=== PATIENT | female | born 1945 | race Caucasian/White ===

== ENCOUNTER → 2021-07-25 14:38 | Outpatient (BNVA) | payer MEDICARE, SELFPAY | PROVIDERS: PCP Internal Medicine; Visit Provider Hospitalist | DX: J45.40 Moderate persistent asthma, uncomplicated (principal); J30.9 Allergic rhinitis, unspecified; R01.1 Cardiac murmur, unspecified | CPT/HCPCS: 99202 ==

== ENCOUNTER 2021-10-24 13:45 | Outpatient (REF) | payer MEDICARE, SELFPAY ==
--- NOTE | 2021-10-24 17:26 | PFT_ITS ---
FLOWS: FEV1 of 77% of predicted at 1.54 L. FVC 76% of predicted at 2.04 L. FEV1 to FVC ratio of 0.75. No bronchodilator response. LUNG VOLUMES: Total lung capacity 93% of predicted at 4.71 L. Residual volume 116% of predicted at 2.74 L. Slow vital capacity 73% of predicted at 1.98 L. Expiratory reserve volume 52% of predicted at 0.29 L. Diffusion capacity is mildly decreased, diffusion capacity corrects to normal after adjustment for alveolar ventilation. IMPRESSION: No obstructive or restrictive ventilatory defect. No bronchodilator response. Raul Zheng MD AP/MODL / [id number]
== END 2021-10-24 13:46 | disposition home or self-care (01) ==
LOC: HO.RESP 13:45
PROVIDERS: PCP Student in an Organized Health Care Education/Training Program; Visit Provider Hospitalist
DX: J45.40 Moderate persistent asthma, uncomplicated (principal)
CPT/HCPCS: 94060; 94727; 94729; 99212

== ENCOUNTER 2022-01-17 15:40 | Outpatient (REF) | payer MEDICARE, SELFPAY ==
[2022-01-17 16:02] LABS: MANUAL DIFF FLAG NO
[2022-01-17 16:49] LABS: Basophils Absolute Auto 0.1 X10*3/uL (0.0-0.2); Basophils Percent Auto 1.2 % (0-2); Eosinophils Absolute Auto 0.3 X10*3/uL (0.0-0.4); Hematocrit 41.2 % (37.0-47.0); Hemoglobin 13.5 g/dl (12.0-16.0); Imm Gran Abs Auto 0.02 X10*3/uL (0.00-0.03); Imm Gran Pct Auto 0.2 % (0.0-0.4); Lymphocytes Absolute Auto 1.4 X10*3/uL (1.2-4.9); Mean Corpuscular HGB Conc 32.8 g/dl (31.0-35.0); Mean Corpuscular Hemoglobin 30.1 pg (27.0-33.0); Mean Corpuscular Volume 91.8 fL (80.0-98.0); Mean Platelet Volume 9.9 fL (9.4-12.3); Monocytes Absolute Auto 0.5 X10*3/uL (0.1-1.2); Neutrophils Absolute Auto 6.2 x10*3/uL (2.0-8.3); Neutrophils Percent Auto 73.6 % (45-73); Platelet Count 296 X10*3/uL (160-400); Red Blood Count 4.49 X10*6/uL (4.20-5.50); Red Cell Distribution Width 13.4 % (11.0-16.0); White Blood Count 8.4 X10*3/uL (4.8-10.8)
[2022-01-17 17:13] LABS: C Reactive Protein 1.44 mg/dL (< or = 0.50)
[2022-01-17 17:31] LABS: Erythrocyte Sedimentation Rate 13 MM/HR (0-20)
[2022-01-22 14:02] LABS: Vitamin D 25-OH, D2 <4 ng/mL; Vitamin D 25-OH, D3 68 ng/mL; Vitamin D 25-OH, Total 68 ng/mL (30-100)
== END 2022-01-17 15:41 | disposition home or self-care (01) ==
LOC: HO.LAB 15:40
PROVIDERS: PCP Student in an Organized Health Care Education/Training Program; Visit Provider Internal Medicine Rheumatology
DX: M35.3 Polymyalgia rheumatica (principal); M81.0 Age-related osteoporosis without current pathological fracture
CPT/HCPCS: 36415; 82306; 85025; 85652; 86140

== ENCOUNTER 2022-01-22 12:05 | Outpatient (REF) | payer MEDICARE, SELFPAY ==
[2022-01-22 14:16] LABS: Alanine Aminotransferase 12 U/L (0-31); Albumin Level 3.9 g/dL (3.5-5.0); Alkaline Phosphatase 64 U/L (39-117); Anion Gap 14 (12-20); Aspartate Amino Transferase 16 U/L (5-31); Bilirubin Total 0.5 mg/dL (0.0-1.0); Blood Urea Nitrogen 13 mg/dL (9-16); Carbon Dioxide 28 mmol/L (22-29); Chloride 102 mmol/L (96-108); Estimated Glomerular Filt Rate > 60; Glucose Random 83 mg/dL (60-115); Potassium 4.5 mmol/L (3.3-5.1); Sodium 139 mmol/L (135-145); Total Protein 7.2 g/dL (6.5-8.0)
[2022-01-23 04:32] LABS: HBS Num1 2.73 mIU/mL (0-7.99); HBc Num1 0.14 S/CO (0.00-0.79); HBsAGNum1 0.18 S/CO (0.00-0.99); Hepatitis B Core Antibody Nonreactive (Nonreactive); Hepatitis B Surface Antigen Negative (Negative); ~HepC Num1 0.07 S/CO (0.00-0.79); ~Hepatitis B Surface Antibody NONREACTIVE (Nonreactive); ~Hepatitis C Antibody Nonreactive (Nonreactive)
[2022-01-24 03:59] LABS: Hepatitis A Antibody IgM 0.25 Index (0-0.79); ~Hepatitis A Antibody IgM Nonreactive (Nonreactive)
[2022-01-25 02:26] LABS: TS Negative Control Passed; TS Panel A 0; TS Panel B 0; TS Positive Control Passed; TSpotTB Negative (Negative)
== END 2022-01-22 12:06 | disposition home or self-care (01) ==
LOC: HO.10HDL 12:05
PROVIDERS: Visit Provider Internal Medicine Rheumatology
DX: M06.00 Rheumatoid arthritis without rheumatoid factor, unspecified site (principal); M35.3 Polymyalgia rheumatica; M81.0 Age-related osteoporosis without current pathological fracture; M19.041 Primary osteoarthritis, right hand; M19.042 Primary osteoarthritis, left hand; Z79.899 Other long term (current) drug therapy
CPT/HCPCS: 36415; 80053; 86481; 86704; 86706; 86709; 86803; 87340; 99212

== ENCOUNTER 2022-03-05 13:50 | Outpatient (REF) | payer MEDICARE, SELFPAY ==
[2022-03-05 14:15] LABS: MANUAL DIFF FLAG NO
[2022-03-05 15:15] LABS: Basophils Absolute Auto 0.1 X10*3/uL (0.0-0.2); Basophils Percent Auto 1.1 % (0-2); Eosinophils Absolute Auto 0.3 X10*3/uL (0.0-0.4); Eosinophils Percent Auto 3.8 % (0-4); Hematocrit 40.2 % (37.0-47.0); Hemoglobin 13.2 g/dl (12.0-16.0); Imm Gran Abs Auto 0.02 X10*3/uL (0.00-0.03); Imm Gran Pct Auto 0.3 % (0.0-0.4); Lymphocytes Absolute Auto 1.1 X10*3/uL (1.2-4.9); Lymphocytes Percent Auto 14.4 % (20-40); Mean Corpuscular HGB Conc 32.8 g/dl (31.0-35.0); Mean Corpuscular Hemoglobin 30.6 pg (27.0-33.0); Mean Corpuscular Volume 93.1 fL (80.0-98.0); Monocytes Absolute Auto 0.6 X10*3/uL (0.1-1.2); Monocytes Percent Auto 7.3 % (2-11); Neutrophils Absolute Auto 5.7 x10*3/uL (2.0-8.3); Neutrophils Percent Auto 73.1 % (45-73); Platelet Count 270 X10*3/uL (160-400); Red Blood Count 4.32 X10*6/uL (4.20-5.50); Red Cell Distribution Width 14.6 % (11.0-16.0); White Blood Count 7.8 X10*3/uL (4.8-10.8)
[2022-03-05 15:41] LABS: Alanine Aminotransferase 9 U/L (0-31); Aspartate Amino Transferase 15 U/L (5-31); C Reactive Protein 0.76 mg/dL (< or = 0.50); Estimated Glomerular Filt Rate > 60
[2022-03-05 16:01] LABS: Erythrocyte Sedimentation Rate 11 MM/HR (0-20)
== END 2022-03-05 13:51 | disposition home or self-care (01) ==
LOC: HO.LAB 13:50
PROVIDERS: PCP Student in an Organized Health Care Education/Training Program; Visit Provider Internal Medicine Rheumatology
DX: M06.00 Rheumatoid arthritis without rheumatoid factor, unspecified site (principal); M81.0 Age-related osteoporosis without current pathological fracture; M19.041 Primary osteoarthritis, right hand; M19.042 Primary osteoarthritis, left hand; Z79.899 Other long term (current) drug therapy
CPT/HCPCS: 36415; 82565; 84450; 84460; 85025; 85652; 86140; 99212

== ENCOUNTER → 2022-05-17 09:50 | Outpatient (BNVA) | payer MEDICARE, SELFPAY | PROVIDERS: PCP Student in an Organized Health Care Education/Training Program; Visit Provider Internal Medicine Rheumatology | DX: M19.042 Primary osteoarthritis, left hand (principal); M19.041 Primary osteoarthritis, right hand; M06.00 Rheumatoid arthritis without rheumatoid factor, unspecified site; Z79.52 Long term (current) use of systemic steroids; Z79.899 Other long term (current) drug therapy | CPT/HCPCS: 99212 ==

== ENCOUNTER 2022-05-17 10:52 | Outpatient (REF) | payer MEDICARE, SELFPAY ==
[2022-05-17 13:32] LABS: MANUAL DIFF FLAG NO
[2022-05-17 14:08] LABS: Basophils Absolute Auto 0.1 X10*3/uL (0.0-0.2); Basophils Percent Auto 1.1 % (0-2); Eosinophils Absolute Auto 0.3 X10*3/uL (0.0-0.4); Eosinophils Percent Auto 3.7 % (0-4); Hematocrit 40.2 % (37.0-47.0); Hemoglobin 13.1 g/dl (12.0-16.0); Imm Gran Abs Auto 0.03 X10*3/uL (0.00-0.03); Imm Gran Pct Auto 0.4 % (0.0-0.4); Lymphocytes Absolute Auto 1.2 X10*3/uL (1.2-4.9); Lymphocytes Percent Auto 13.8 % (20-40); Mean Corpuscular HGB Conc 32.6 g/dl (31.0-35.0); Mean Corpuscular Hemoglobin 31.4 pg (27.0-33.0); Mean Corpuscular Volume 96.4 fL (80.0-98.0); Mean Platelet Volume 9.8 fL (9.4-12.3); Monocytes Absolute Auto 0.5 X10*3/uL (0.1-1.2); Monocytes Percent Auto 5.9 % (2-11); Neutrophils Absolute Auto 6.3 x10*3/uL (2.0-8.3); Neutrophils Percent Auto 75.1 % (45-73); Platelet Count 294 X10*3/uL (160-400); Red Blood Count 4.17 X10*6/uL (4.20-5.50); Red Cell Distribution Width 14.6 % (11.0-16.0); White Blood Count 8.4 X10*3/uL (4.8-10.8)
[2022-05-17 14:36] LABS: Alanine Aminotransferase 12 U/L (0-31); Aspartate Amino Transferase 17 U/L (5-31); C Reactive Protein 0.56 mg/dL (< or = 0.50); Estimated Glomerular Filt Rate > 60
[2022-05-17 14:58] LABS: Erythrocyte Sedimentation Rate 12 MM/HR (0-20)
== END 2022-05-17 10:53 | disposition home or self-care (01) ==
LOC: HO.10HDL 10:52
PROVIDERS: Visit Provider Internal Medicine Rheumatology
DX: M19.041 Primary osteoarthritis, right hand (principal); M19.042 Primary osteoarthritis, left hand; M06.00 Rheumatoid arthritis without rheumatoid factor, unspecified site; Z79.899 Other long term (current) drug therapy
CPT/HCPCS: 36415; 82565; 84450; 84460; 85025; 85652; 86140

== ENCOUNTER → 2022-05-21 14:32 | Outpatient (BNVA) | payer MEDICARE, SELFPAY | PROVIDERS: PCP Student in an Organized Health Care Education/Training Program; Visit Provider Hospitalist | DX: J45.40 Moderate persistent asthma, uncomplicated (principal); J30.9 Allergic rhinitis, unspecified; J98.4 Other disorders of lung; R01.1 Cardiac murmur, unspecified | CPT/HCPCS: 99212 ==

== ENCOUNTER 2022-09-06 12:22 | Outpatient (REF) | payer MEDICARE, SELFPAY ==
[2022-09-06 13:55] LABS: MANUAL DIFF FLAG NO
[2022-09-06 14:18] LABS: Basophils Absolute Auto 0.1 X10*3/uL (0.0-0.2); Basophils Percent Auto 1.1 % (0-2); Eosinophils Absolute Auto 0.5 X10*3/uL (0.0-0.4); Eosinophils Percent Auto 5.6 % (0-4); Hematocrit 41.5 % (37.0-47.0); Hemoglobin 13.5 g/dl (12.0-16.0); Imm Gran Abs Auto 0.01 X10*3/uL (0.00-0.03); Imm Gran Pct Auto 0.1 % (0.0-0.4); Lymphocytes Absolute Auto 1.9 X10*3/uL (1.2-4.9); Lymphocytes Percent Auto 22.8 % (20-40); Mean Corpuscular HGB Conc 32.5 g/dl (31.0-35.0); Mean Corpuscular Hemoglobin 31.1 pg (27.0-33.0); Mean Corpuscular Volume 95.6 fL (80.0-98.0); Mean Platelet Volume 10.1 fL (9.4-12.3); Monocytes Absolute Auto 0.9 X10*3/uL (0.1-1.2); Monocytes Percent Auto 11.2 % (2-11); Neutrophils Absolute Auto 4.8 x10*3/uL (2.0-8.3); Neutrophils Percent Auto 59.2 % (45-73); Platelet Count 312 X10*3/uL (160-400); Red Blood Count 4.34 X10*6/uL (4.20-5.50); Red Cell Distribution Width 14.3 % (11.0-16.0); White Blood Count 8.2 X10*3/uL (4.8-10.8)
[2022-09-06 14:35] LABS: C Reactive Protein 0.58 mg/dL (< or = 0.50)
[2022-09-06 14:57] LABS: Erythrocyte Sedimentation Rate 16 MM/HR (0-20)
== END 2022-09-06 12:23 | disposition home or self-care (01) ==
LOC: HO.WFDLDS 12:22
PROVIDERS: Visit Provider Internal Medicine Rheumatology
DX: M06.00 Rheumatoid arthritis without rheumatoid factor, unspecified site (principal); Z79.899 Other long term (current) drug therapy
CPT/HCPCS: 36415; 85025; 85652; 86140

== ENCOUNTER → 2022-09-10 13:42 | Outpatient (BNVA) | payer MEDICARE, SELFPAY | PROVIDERS: PCP Student in an Organized Health Care Education/Training Program; Visit Provider Internal Medicine Rheumatology | DX: M06.00 Rheumatoid arthritis without rheumatoid factor, unspecified site (principal); M19.041 Primary osteoarthritis, right hand; M19.042 Primary osteoarthritis, left hand; Z79.899 Other long term (current) drug therapy | CPT/HCPCS: 99212 ==

== ENCOUNTER 2022-12-24 11:51 | Outpatient (REF) | payer MEDICARE, SELFPAY ==
[2022-12-24 12:00] LABS: MANUAL DIFF FLAG NO
[2022-12-24 13:52] LABS: Basophils Absolute Auto 0.1 X10*3/uL (0.0-0.2); Basophils Percent Auto 1.2 % (0-2); Eosinophils Absolute Auto 0.5 X10*3/uL (0.0-0.4); Eosinophils Percent Auto 5.7 % (0-4); Hematocrit 41.8 % (37.0-47.0); Hemoglobin 13.7 g/dl (12.0-16.0); Imm Gran Abs Auto 0.02 X10*3/uL (0.00-0.03); Imm Gran Pct Auto 0.2 % (0.0-0.4); Lymphocytes Absolute Auto 1.7 X10*3/uL (1.2-4.9); Lymphocytes Percent Auto 19.7 % (20-40); Mean Corpuscular HGB Conc 32.8 g/dl (31.0-35.0); Mean Corpuscular Hemoglobin 31.3 pg (27.0-33.0); Mean Corpuscular Volume 95.4 fL (80.0-98.0); Mean Platelet Volume 10.2 fL (9.4-12.3); Monocytes Absolute Auto 0.9 X10*3/uL (0.1-1.2); Monocytes Percent Auto 10.2 % (2-11); Neutrophils Absolute Auto 5.3 x10*3/uL (2.0-8.3); Platelet Count 264 X10*3/uL (160-400); Red Blood Count 4.38 X10*6/uL (4.20-5.50); Red Cell Distribution Width 14.2 % (11.0-16.0); White Blood Count 8.5 X10*3/uL (4.8-10.8)
[2022-12-24 14:33] LABS: Erythrocyte Sedimentation Rate 12 MM/HR (0-20)
[2022-12-24 14:40] LABS: Alanine Aminotransferase 14 U/L (0-31); Aspartate Amino Transferase 19 U/L (5-31); Estimated Glomerular Filt Rate > 60
== END 2022-12-24 11:52 | disposition home or self-care (01) ==
LOC: HO.LAB 11:51
PROVIDERS: PCP Student in an Organized Health Care Education/Training Program; Visit Provider Internal Medicine Rheumatology
DX: M06.00 Rheumatoid arthritis without rheumatoid factor, unspecified site (principal); Z79.899 Other long term (current) drug therapy
CPT/HCPCS: 36415; 82565; 84450; 84460; 85025; 85652; 86140

== ENCOUNTER 2023-01-17 09:41 | Outpatient (AMB) | payer MEDICARE, SELFPAY ==
--- NOTE | 2023-01-17 09:44 | A.OFFVIS_ITS ---
Intake Vital Signs 01/17/23 09:53 Height 5 ft 4 in Weight 148 lb 12.992 oz BMI 25.5 BP 126/70 Blood Pressure Location Lt brachial Position Sitting Pulse 80 Pulse Source Pulse Oximeter Temp 97.2 F Temp Source Skin Pulse Oximetry (%) 97 Oxygen Delivery Method Room Air Intake Visit Reasons: RA Intake Note: Patient here for RA follow up. Sand Analyst Required: No Accompanied by: Self / Same As Patient Allergies hydroxychloroquine [From Plaquenil] Adverse Reaction (Intermediate, Verified 01/17/23 09:52) Rash Sulfa (Sulfonamide Antibiotics) Adverse Reaction (Intermediate, Verified 01/17/23 09:52) Rash HPI HPI Comments History of Present Illness Details The patient returns for evaluation of her rheumatoid arthritis. She remains on methotrexate 15 mg weekly and folic acid 1 mg daily. We had stopped her prednisone back in September. She has remained off it. She still is taking alendronate 70 mg weekly for osteoporosis. She last had a bone density study at [facility] last year. This showed some improvement in the lumbar spine region as compared to previously. We would continue the alendronate because of her continued use of prednisone. She has been experiencing some low back pain. This is usually occurring when she is more active. She does have an orthopedic evaluation for that planned in a week or 2. There has been no previous back injury or surgery on the back. Symptoms do not seem seem to radiate more distally than just the buttock area on the right. [facility] Medical History (Updated 09/09/22 @ 15:44 by Migue Infante MD) Dyspnea Chronic allergic rhinitis Murmur Asthma Family History Father Esophageal cancer Brother Alzheimer disease Social History (Updated 01/17/23 @ 09:53 by DOMINIC Raines) Household Members: Spouse Alcohol intake: former Patient Tobacco Use Status: Never used Tobacco Review of Systems Const Details: Negative for appetite change, weight change, fever, chills, malaise and fatigue Eyes Details: Negative for vision change, dry eyes,headaches and dizziness Card Details: Negative chest pain, edema and syncope Resp Details: Negative for SOB, cough and wheezing GI Details: Negative indigestion/heartburn, nausea, abdominal pain, bowel changes, diarrhea, constipation and bloody stool. Details: Negative for dysuria, hematuria, nocturia, decreased force/flow and genital discharge Endo Details: Negative for polyuria and polydypsia Chalino/Lymph Details: Negative for excessive bruising or bleeding. Physical Exam Vital Signs: Last Vital Signs Temp 97.2 F 01/17/23 09:53 Pulse 80 01/17/23 09:53 BP 126/70 01/17/23 09:53 Pulse Ox 97 01/17/23 09:53 Oxygen Delivery Method Room Air 01/17/23 09:53 BMI result Body Mass Index 25.5 APPEARANCE: Patient in no acute distress EXTREMITIES: Some nontender spider veins in the dorsum of the feet and medial malleolar regions. No edema, no calf tenderness, normal peripheral pulses. SKIN: No inflammatory or neoplastic lesions. Normal color and turgor JOINT EXAM: Cervical Spine:.? Full range of motion without pain; no tenderness. Thoracic Spine:.? Some kyphoscoliosis, more kyphosis in the thoracic spine.? No tenderness on palpation. Lumbar Spine:.? Alignment normal.? She has some kyphoscoliosis. There is mild pain with flexion beyond 45 degrees and some right paraspinal muscle tenderness. No tenderness over the vertebral spines. Chest Wall:.? No tenderness, swelling, increased warmth or erythema. Hands:? Right: Slight bony enlargement without tenderness at the base of the thumb.? There is slight swelling of the 2nd MCP joint and 2nd and 3rd PIP joints.? These joints are not tender however.? There is no flexor tendon triggering, thenar atrophy or sensory loss.? Left:? Moderate bony enlargement with slight tenderness at the base of the thumb.? There is soft tissue swelling at the 1st MCP joint with no tenderness.? There is soft tissue swelling and no tenderness at the 2nd and 3rd PIP.? There is no flexor tendon triggering, thenar atrophy or sensory loss. Wrists:.? Normal pain-free range of motion without tenderness, swelling, incr eased warmth or erythema. Elbows:. Normal pain-free range of motion without tenderness, swelling, increased warmth or erythema. Shoulders:.?? Full range of motion without pain. No tenderness, weakness, swelling, increased warmth or erythema. Hips:.? Full range of motion without pain. Hip bursa:.? No tenderness. Knees:.?? Normal pain-free range of motion with mild patellofemoral crepitus but no effusion, swelling, increased warmth or erythema.? Ankles:.? Normal pain-free range of motion without tenderness, swelling, increased warmth or erythema. Feet:.? Right:? There is slight tenderness across the MTP joints and has h ammertoe deformities of the 2nd through 4th toes.? These are minimally tender at the MTPs.? Left:? Normal pain-free range of motion without tenderness, swelling, increased warmth or erythema.? Slight hammertoe deformity at the 4th toe without any tenderness. Tender points:? No tenderness to digital palpation at the occiput, trapezius, second rib, lateral epicondyle, knees, greater trochanter and gluteal area bilaterally. Results Reviewed Results Reviewed: 12/24/22 labs: wbc 8.5, hgb 13.7, esr 12, reat 0.8, ALT and AST WNL, CRP 0.5 Assessment & Plan Assessment & Plan (1) Long-term use of immunosuppressant medication: Code(s): Z79.899 - Other usp (current) drug therapy (2) Osteoporosis: Comment: Bone density 06/09/07 T -4.2 spine, -2.2 hip, -2.4 fem neck, -3.5 spine, osteopenia hip on repeat testing 07/20 Alendronate: [id number]; restarted 2016 Code(s): M81.0 - Age-related osteoporosis without current pathological fracture (3) Osteoarthritis of hands, bilateral: Code(s): M19.041 - Primary osteoarthritis, right hand; M19.042 - Primary osteoarthritis, left hand (4) Seronegative rheumatoid arthritis: Comment: Onset in about 2017 with PMR like picture. In 2021 she developed more small joint synovitis in the hands. Rheumatoid factor negative in 2018. In 2018 treatment trial hydroxychloroquine and then sulfasalazine was aborted because of skin rashes. 01/2022: methotrexate started Code(s): M06.00 - Rheumatoid arthritis without rheumatoid factor, unspecified site Plan Rheumatoid arthritis with I think good control of synovitis with current treatment. She has some remaining discomfort in the hands with bony changes consistent with some osteoarthritis. The blood work would indicate she is tolerating the methotrexate so I think it can be continued as above. I think at this point she could stop the alendronate. She had an improvement in the bone density and is no longer on the prednisone. My plan would be to hold it for a year or 2 and repeat her bone density to assess its stability. The back pain is likely due to the osteoarthritis rather than anything to do with the rheumatoid arthritis. Acetaminophen is recommended in place of the ibuprofen at present since it is less likely to cause renal or GI side effects. Follow-up in 3 months is recommended. 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 This would be in [place]. She will look into availability at the [facility]. She may request transfer of her records at some point later this fall or early next year. Coding Level of Care Code Est Pt Level 4 (48661) Diagnoses Long-term use of immunosuppressant medication Z79.899 Osteoporosis M81.0 Osteoarthritis of hands, bilateral M19.041; M19.042 Seronegative rheumatoid arthritis M06.00
[2023-01-17 09:53] VITALS: BP 126/70; PULSE 80; TEMP 36.2; O2SAT 97; BMI 25.5
== END 2023-01-17 10:26 | disposition home or self-care (01) ==
PROVIDERS: PCP Student in an Organized Health Care Education/Training Program; Visit Provider Internal Medicine Rheumatology
DX: Z79.899 Other long term (current) drug therapy (principal); M81.0 Age-related osteoporosis without current pathological fracture; M19.041 Primary osteoarthritis, right hand; M19.042 Primary osteoarthritis, left hand; M06.00 Rheumatoid arthritis without rheumatoid factor, unspecified site
CPT/HCPCS: 99214

== ENCOUNTER → 2023-01-17 09:41 | Outpatient (BNVA) | payer MEDICARE, SELFPAY | PROVIDERS: PCP Student in an Organized Health Care Education/Training Program; Visit Provider Internal Medicine Rheumatology | DX: M06.00 Rheumatoid arthritis without rheumatoid factor, unspecified site (principal); M19.041 Primary osteoarthritis, right hand; M19.042 Primary osteoarthritis, left hand; M81.0 Age-related osteoporosis without current pathological fracture; Z79.631 Long term (current) use of antimetabolite agent | CPT/HCPCS: 99212 ==

== ENCOUNTER 2023-04-26 13:23 | Outpatient (REF) | payer MEDICARE, SELFPAY ==
[2023-04-26 13:39] LABS: MANUAL DIFF FLAG NO
[2023-04-26 13:54] LABS: Basophils Absolute Auto 0.1 X10*3/uL (0.0-0.2); Basophils Percent Auto 1.5 % (0-2); Eosinophils Absolute Auto 0.4 X10*3/uL (0.0-0.4); Hematocrit 38.4 % (37.0-47.0); Hemoglobin 12.6 g/dl (12.0-16.0); Imm Gran Abs Auto 0.02 X10*3/uL (0.00-0.03); Imm Gran Pct Auto 0.3 % (0.0-0.4); Lymphocytes Absolute Auto 1.3 X10*3/uL (1.2-4.9); Lymphocytes Percent Auto 20.4 % (20-40); Mean Corpuscular HGB Conc 32.8 g/dl (31.0-35.0); Mean Corpuscular Hemoglobin 30.9 pg (27.0-33.0); Mean Corpuscular Volume 94.1 fL (80.0-98.0); Mean Platelet Volume 9.5 fL (9.4-12.3); Monocytes Absolute Auto 0.8 X10*3/uL (0.1-1.2); Monocytes Percent Auto 13.3 % (2-11); Neutrophils Absolute Auto 3.6 x10*3/uL (2.0-8.3); Neutrophils Percent Auto 57.5 % (45-73); Platelet Count 265 X10*3/uL (160-400); Red Blood Count 4.08 X10*6/uL (4.20-5.50); Red Cell Distribution Width 14.3 % (11.0-16.0); White Blood Count 6.2 X10*3/uL (4.8-10.8)
[2023-04-26 14:15] LABS: Alanine Aminotransferase 14 U/L (0-31); Aspartate Amino Transferase 21 U/L (5-31); C Reactive Protein 0.61 mg/dL (< or = 0.50); Estimated Glomerular Filt Rate > 60
[2023-04-26 14:38] LABS: Erythrocyte Sedimentation Rate 16 MM/HR (0-20)
== END 2023-04-26 13:24 | disposition home or self-care (01) ==
LOC: HO.LAB 13:23
PROVIDERS: Visit Provider Internal Medicine Rheumatology
DX: M06.00 Rheumatoid arthritis without rheumatoid factor, unspecified site (principal); Z79.899 Other long term (current) drug therapy
CPT/HCPCS: 36415; 82565; 84450; 84460; 85025; 85652; 86140

== ENCOUNTER 2023-04-29 10:42 | Outpatient (AMB) | payer MEDICARE, SELFPAY ==
--- NOTE | 2023-04-29 10:47 | MHC.OFFVIS ---
Intake Vital Signs 04/29/23 10:48 Height 5 ft 4 in Weight 144 lb 13.499 oz BMI 24.9 BP 130/72 Blood Pressure Location Rt brachial Position Sitting Pulse 85 Pulse Source Pulse Oximeter Intake Visit Reasons: RA Intake Note: Pt last seen by Dr Infante on 01/17/23, presents today for follow up and test results. Construction Checker Required: No Accompanied by: Self / Same As Patient Allergies hydroxychloroquine [From Plaquenil] Adverse Reaction (Intermediate, Verified 04/29/23 10:50) Rash Sulfa (Sulfonamide Antibiotics) Adverse Reaction (Intermediate, Verified 04/29/23 10:50) Rash Medication List - Last Reconciled 04/29/23 by Bulmaro Steve MD albuterol sulfate 90 mcg/actuation 1 puff PO Q6H PRN budesonide-formoterol 160-4.5 mcg/actuation (Symbicort) 2 puffs inhalation BID PRN cholecalciferol (vitamin D3) 250 mcg PO DAILY fluticasone propionate 110 mcg/actuation (Flovent HFA) 1 puff inhalation DAILY fluticasone propionate 50 mcg/actuation 2 sprays intranasal DAILY 30 days folic acid 1 mg PO DAILY ibuprofen 400 mg PO BEDTIME PRN loratadine 10 mg PO DAILY 30 days meloxicam 7.5 mg PO DAILY methotrexate sodium 15 mg (6 x 2.5 mg) PO QWEEK mometasone 0.1% appl topical BID triamcinolone acetonide 0.1% appl topical DAILY HPI HPI Comments History of Present Illness Details This is a 77-year-old female with seronegative RA who presents as a new patient for me. She used to see Dr. Infante. Last visit was 3 months ago. She is on methotrexate 15 mg weekly, folic acid 1 mg daily. She states that she is doing well overall. She gets intermittent aching of her left thumb. She mentions that she was evaluated by [facility] 4-6 months ago for back pain. She states that she gets back pain with activity and improved with rest. She was prescribed meloxicam and physical therapy. She was not able to do the physical therapy in time and the order . She is doing well otherwise. Previous visit by Dr. Infante 01/2023: The patient returns for evaluation of her rheumatoid arthritis. She remains on methotrexate 15 mg weekly and folic acid 1 mg daily. We had stopped her prednisone back in September. She has remained off it. She still is taking alendronate 70 mg weekly for osteoporosis. She last had a bone density study at [place] last year. This showed some improvement in the lumbar spine region as compared to previously. We would continue the alendronate because of her continued use of prednisone. She has been experiencing some low back pain. This is usually occurring when she is more active. She does have an orthopedic evaluation for that planned in a week or 2. There has been no previous back injury or surgery on the back. Symptoms do not seem seem to radiate more distally than just the buttock area on the right. [facility] Medical History Dyspnea Chronic allergic rhinitis Murmur Asthma Surgical History History of ear surgery Family History Father Esophageal cancer Brother Alzheimer disease Social History Household Members: Spouse Alcohol intake: former Patient Tobacco Use Status: Never used Tobacco Review of Systems [facility] Reports back pain, Reports arthralgias and Denies joint swelling Physical Exam Vital Signs: Last Vital Signs Pulse 85 04/29/23 10:48 BP 130/72 04/29/23 10:48 BMI result Body Mass Index 24.9 Const General: cooperative, healthy appearing and comfortable Nutritional Appearance: average body habitus Orientation/consciousness: patient oriented x3 Limitations: no limitations HEENT Head: Yes normocephalic and Yes atraumatic Mouth: moist mucous membranes Resp Effort & Inspection: normal respiratory effort and able to speak in complete sentences Auscultation: wheezes Cardio Rate: regular rate Rhythm: regular rhythm Skin General skin exam: no rashes or lesions noted Neuro General: patient oriented x3 Extrem Other: Osteoarthritic changes of both hands with no active synovitis Mild bilateral 1st CMC joint tenderness Negative straight leg raise test bilaterally Assessment & Plan Assessment & Plan (1) Seronegative rheumatoid arthritis: Comment: Onset in about 2016 with PMR like picture. In 2021 she developed more small joint synovitis in the hands. RF in 2018. In 2018 treatment trial HCQ and then sulfasalazine was aborted because of skin rashes. 01/2022: methotrexate started, effective Code(s): M06.00 - Rheumatoid arthritis without rheumatoid factor, unspecified site Plan: This is a 77-year-old female with seronegative RA who presents as a new patient for me. She used to follow-up with Dr. Infante. Patient is doing well overall with no active synovitis. Continue methotrexate 15 mg weekly and folic acid 1 mg daily Will check an anti CCP Labs before next visit in 3 months (2) Long-term use of immunosuppressant medication: Code(s): Z79.899 - Other meterman (current) drug therapy Plan: Monitor safety labs (3) Osteoporosis: Comment: Bone density 06/09/07 T -4.2 spine, -2.2 hip, -2.4 fem neck, -3.5 spine 2009 DEXA 2018 L-spine T-score -4.2, left hip T-score -2.3 DEXA 08/2021 L-spine T-score -3.8, left hip T-score -2.3 Alendronate: [id number]; restarted 2016- DC 01/2023 Code(s): M81.0 - Age-related osteoporosis without current pathological fracture Qualifiers: Osteoporosis type: age-related Presence of current pathological fracture: without current pathological fracture Qualified Code(s): M81.0 - Age-related osteoporosis without current pathological fracture Plan: Bone density improved on alendronate. Will continue to hold alendronate. Plan to repeat DEXA 08/2023. Discussed the importance of avoiding falls (4) Osteoarthritis of hands, bilateral: Code(s): M19.041 - Primary osteoarthritis, right hand; M19.042 - Primary osteoarthritis, left hand Qualifiers: Osteoarthritis type: primary Qualified Code(s): M19.041 - Primary osteoarthritis, right hand; M19.042 - Primary osteoarthritis, left hand Plan: Most symptomatic is left 1st CMC joint. Advised patient to t try using Voltaren gel, use acetaminophen, use meloxicam sparingly (5) Lumbar degenerative disc disease: Code(s): M51.36 - Other intervertebral disc degeneration, lumbar region Plan: Advised patient to reach out to her PCP. Consider physical therapy (6) Immunization counseling: Code(s): Z71.85 - Encounter for immunization safety counseling Plan: Patient received the flu vaccine for this season. Advised patient to get the new COVID booster and RSV vaccines. Hold methotrexate 2 weeks after vaccination Plan I spent 47 minutes reviewing patient's chart, evaluating patient, ordering diagnostic workup, counseling patient and documenting in the chart Orders: Orders C Reactive Protein 3 Months Z79.899 - Other meterman (current) drug therapy Erythrocyte Sedimentation Rate 3 Months Z79.899 - Other meterman (current) drug therapy Complete Blood Count Auto Diff 3 Months Z79.899 - Other meterman (current) drug therapy Comprehensive Met. Panel 3 Months Z79.899 - Other senior care (current) drug therapy Cyclic Citrullinated Peptide 3 Months M06.00 - Rheumatoid arthritis without rheumatoid factor, unspecified site Medications: New meloxicam 7.5 mg PO DAILY PRN 15 tabs 1RF joint pain Coding Level of Care Code Est Pt Level 5 (86636) Diagnoses Seronegative rheumatoid arthritis M06.00 Long-term use of immunosuppressant medication Z79.899 Age-related osteoporosis without current pathological fracture M81.0 Osteoporosis type: age-related Presence of current pathological fracture: without current pathological fracture Primary osteoarthritis of both hands M19.041; M19.042 Osteoarthritis type: primary Lumbar degenerative disc disease M51.36 Immunization counseling Z71.85
[2023-04-29 10:48] VITALS: BP 130/72; PULSE 85; BMI 24.9
== END 2023-04-29 11:30 | disposition home or self-care (01) ==
PROVIDERS: PCP Student in an Organized Health Care Education/Training Program; Visit Provider Student in an Organized Health Care Education/Training Program
DX: M06.09 Rheumatoid arthritis without rheumatoid factor, multiple sites (principal); Z79.899 Other long term (current) drug therapy; M81.0 Age-related osteoporosis without current pathological fracture; M19.041 Primary osteoarthritis, right hand; M19.042 Primary osteoarthritis, left hand; M51.36 Other intervertebral disc degeneration, lumbar region; Z71.85 Encounter for immunization safety counseling
CPT/HCPCS: 99215

== ENCOUNTER → 2023-04-29 10:42 | Outpatient (BNVA) | payer MEDICARE, SELFPAY | PROVIDERS: PCP Student in an Organized Health Care Education/Training Program; Visit Provider Student in an Organized Health Care Education/Training Program | DX: M06.00 Rheumatoid arthritis without rheumatoid factor, unspecified site (principal); M81.0 Age-related osteoporosis without current pathological fracture; M19.041 Primary osteoarthritis, right hand; M19.042 Primary osteoarthritis, left hand; M51.36 Other intervertebral disc degeneration, lumbar region; Z71.85 Encounter for immunization safety counseling; Z79.899 Other long term (current) drug therapy | CPT/HCPCS: 99212 ==

== ENCOUNTER 2023-07-25 16:13 | Outpatient (REF) | payer MEDICARE, SELFPAY ==
[2023-07-25 16:56] LABS: MANUAL DIFF FLAG NO
[2023-07-25 18:11] LABS: Alanine Aminotransferase 24 U/L (0-31); Albumin Level 4.1 g/dL (3.5-5.0); Alkaline Phosphatase 70 U/L (39-117); Anion Gap 9 (12-20); Aspartate Amino Transferase 26 U/L (5-31); Bilirubin Total 0.4 mg/dL (0.0-1.0); Blood Urea Nitrogen 16 mg/dL (9-16); C Reactive Protein 0.52 mg/dL (< or = 0.50); Calcium 10.4 mg/dL (8.4-10.2); Carbon Dioxide 29 mmol/L (22-29); Chloride 105 mmol/L (96-108); Estimated Glomerular Filt Rate > 60; Glucose Random 90 mg/dL (60-115); Potassium 4.3 mmol/L (3.3-5.1); Sodium 139 mmol/L (135-145); Total Protein 7.3 g/dL (6.5-8.0)
[2023-07-25 18:37] LABS: Erythrocyte Sedimentation Rate 13 MM/HR (0-20)
[2023-07-25 19:25] LABS: Basophils Absolute Auto 0.1 X10*3/uL (0.0-0.2); Basophils Percent Auto 1.4 % (0-2); Eosinophils Absolute Auto 0.4 X10*3/uL (0.0-0.4); Eosinophils Percent Auto 5.3 % (0-4); Hematocrit 38.8 % (37.0-47.0); Hemoglobin 12.8 g/dl (12.0-16.0); Imm Gran Abs Auto 0.02 X10*3/uL (0.00-0.03); Imm Gran Pct Auto 0.3 % (0.0-0.4); Lymphocytes Absolute Auto 1.7 X10*3/uL (1.2-4.9); Lymphocytes Percent Auto 26.2 % (20-40); Mean Corpuscular Hemoglobin 31.7 pg (27.0-33.0); Mean Platelet Volume 9.9 fL (9.4-12.3); Monocytes Absolute Auto 0.7 X10*3/uL (0.1-1.2); Monocytes Percent Auto 10.8 % (2-11); Neutrophils Absolute Auto 3.7 x10*3/uL (2.0-8.3); Platelet Count 271 X10*3/uL (160-400); Red Blood Count 4.04 X10*6/uL (4.20-5.50); Red Cell Distribution Width 15.4 % (11.0-16.0); White Blood Count 6.7 X10*3/uL (4.8-10.8)
[2023-07-26 18:43] LABS: Cyclic Citrullinated Peptide <16 UNITS
== END 2023-07-25 16:14 | disposition home or self-care (01) ==
LOC: HO.LAB 16:13
PROVIDERS: PCP Student in an Organized Health Care Education/Training Program; Visit Provider Student in an Organized Health Care Education/Training Program
DX: M06.00 Rheumatoid arthritis without rheumatoid factor, unspecified site (principal); Z79.899 Other long term (current) drug therapy
CPT/HCPCS: 36415; 80053; 85025; 85652; 86140; 86200

== ENCOUNTER 2023-07-29 11:06 | Outpatient (AMB) | payer MEDICARE, SELFPAY ==
[2023-07-29 11:15] VITALS: BP 132/64; PULSE 88; O2SAT 95; BMI 25.4
--- NOTE | 2023-07-29 11:15 | MHC.OFFVIS ---
Intake Vital Signs 07/29/23 11:15 Height 5 ft 3.74 in Weight 146 lb 9.718 oz BMI 25.4 BP 132/64 Blood Pressure Location Rt brachial Position Sitting Pulse 88 Pulse Source Pulse Oximeter Pulse Oximetry (%) 95 Oxygen Delivery Method Room Air Intake Visit Reasons: RA Intake Note: Patient last seen 04/29/23 presents today for follow up and test results. 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 Accompanied by: Self / Same As Patient Allergies hydroxychloroquine [From Plaquenil] Adverse Reaction (Intermediate, Verified 07/29/23 11:19) Rash Sulfa (Sulfonamide Antibiotics) Adverse Reaction (Intermediate, Verified 07/29/23 11:19) Rash Medication List - Last Reconciled 07/29/23 by Bulmaro Steve MD albuterol sulfate 90 mcg/actuation 1 puff PO Q6H PRN budesonide-formoterol 160-4.5 mcg/actuation (Symbicort) 2 puffs inhalation BID PRN cholecalciferol (vitamin D3) 250 mcg PO DAILY fluticasone propionate 110 mcg/actuation (Flovent HFA) 1 puff inhalation DAILY fluticasone propionate 50 mcg/actuation 2 sprays intranasal DAILY 30 days folic acid 1 mg PO DAILY ibuprofen 400 mg PO BEDTIME PRN loratadine 10 mg PO DAILY 30 days meloxicam 7.5 mg PO DAILY PRN methotrexate sodium 15 mg (6 x 2.5 mg) PO QWEEK mometasone 0.1% appl topical BID triamcinolone acetonide 0.1% appl topical DAILY HPI HPI Comments History of Present Illness Details This is a 77-year-old female with seronegative RA who presents for follow-up. On methotrexate 15 mg weekly and folic acid 1 mg daily. Continues to feel about the same overall. No new symptoms. She has noticed that she does not have the strength to open bottles. She denies any tingling or numbness of her fingers. She gets intermittent back pain, she was evaluated by [facility] and an x-ray was done and according to patient it did not show anything remarkable. She takes Tylenol once or twice a day as needed for pains. She has not had any falls or fractures since last visit. She remains off alendronate She states that she is doing well overall. She gets intermittent aching of her left thumb. She mentions that she was evaluated by [facility] 4-6 months ago for back pain. She states that she gets back pain with activity and improved with rest. She was prescribed meloxicam and physical therapy. She was not able to do the physical therapy in time and the order . She is doing well otherwise. Previous visit by Dr. Infante 01/2023: The patient returns for evaluation of her rheumatoid arthritis. She remains on methotrexate 15 mg weekly and folic acid 1 mg daily. We had stopped her prednisone back in September. She has remained off it. She still is taking alendronate 70 mg weekly for osteoporosis. She last had a bone density study at [place] last year. This showed some improvement in the lumbar spine region as compared to previously. We would continue the alendronate because of her continued use of prednisone. She has been experiencing some low back pain. This is usually occurring when she is more active. She does have an orthopedic evaluation for that planned in a week or 2. There has been no previous back injury or surgery on the back. Symptoms do not seem seem to radiate more distally than just the buttock area on the right. [facility] Medical History Dyspnea Chronic allergic rhinitis Murmur Asthma Surgical History History of ear surgery Family History Father Esophageal cancer Brother Alzheimer disease Social History Household Members: Spouse Alcohol intake: former Patient Tobacco Use Status: Never used Tobacco Review of Systems [facility] Reports back pain, Denies joint swelling, Denies numbness and Denies tingling Neuro Denies numbness and Denies tingling Physical Exam Vital Signs: Last Vital Signs Pulse 88 07/29/23 11:15 BP 132/64 07/29/23 11:15 Pulse Ox 95 07/29/23 11:15 Oxygen Delivery Method Room Air 07/29/23 11:15 BMI result Body Mass Index 25.4 Const General: cooperative, healthy appearing and comfortable Nutritional Appearance: average body habitus Orientation/consciousness: patient oriented x3 Limitations: no limitations HEENT Head: Yes normocephalic and Yes atraumatic Mouth: moist mucous membranes Resp Effort & Inspection: normal respiratory effort and able to speak in complete sentences Cardio Rate: regular rate Rhythm: regular rhythm Skin General skin exam: no rashes or lesions noted Neuro General: patient oriented x3 Extrem Other: Osteoarthritic changes of both hands with no active synovitis Mild bilateral 1st CMC joint tenderness No knee pain with flexion-extension bilaterally Negative straight leg raise test bilaterally Assessment & Plan Assessment & Plan (1) Seronegative rheumatoid arthritis: Comment: Onset in about 2016 with PMR like picture. In 2021 she developed more small joint synovitis in the hands. RF in 2018. In 2018 treatment trial HCQ and then sulfasalazine was aborted because of skin rashes. 01/2022: methotrexate started, effective Code(s): M06.00 - Rheumatoid arthritis without rheumatoid factor, unspecified site Plan: This is a 77-year-old female with seronegative RA who presents for follow-up. Patient is doing well overall with no active synovitis. Continue methotrexate 15 mg weekly and folic acid 1 mg daily Labs before next visit in 3 months (2) Long-term use of immunosuppressant medication: Code(s): Z79.899 - Other adjunct faculty for medical terminology (current) drug therapy Plan: Monitor safety labs (3) Osteoporosis: Comment: Bone density 06/09/07 T -4.2 spine, -2.2 hip, -2.4 fem neck, -3.5 spine 2009 DEXA 2018 L-spine T-score -4.2, left hip T-score -2.3 DEXA 08/2021 L-spine T-score -3.8, left hip T-score -2.3 Alendronate: [id number]; restarted 2016- DC 01/2023 DEXA 05/2023 L-spine T-score -3.7 total hip T-score-2 point all femoral neck T-score -2.6 Code(s): M81.0 - Age-related osteoporosis without current pathological fracture Qualifiers: Osteoporosis type: age-related Presence of current pathological fracture: without current pathological fracture Qualified Code(s): M81.0 - Age-related osteoporosis without current pathological fracture Plan: Bone density improved on alendronate. Will continue to hold alendronate. Plan to repeat DEXA early 2025 Discussed the importance of avoiding falls. Continue with vitamin-D supplementation. Patient takes 2000 units of vitamin-D daily. She recently started taking Citracal. Does not know the dose. She will call the office and let me know Plan I spent 47 minutes reviewing patient's chart, evaluating patient, ordering diagnostic workup, counseling patient and documenting in the chart Orders: Orders Complete Blood Count Auto Diff 3 Months M06.00 - Rheumatoid arthritis without rheumatoid factor, unspecified site, Z79.899 - Other adjunct faculty for medical terminology (current) drug therapy Comprehensive Met. Panel 3 Months M06.00 - Rheumatoid arthritis without rheumatoid factor, unspecified site, Z79.899 - Other assisted (current) drug therapy Vitamin D 25-OH (D2 and D3) 3 Months Z13.21 - Encounter for screening for nutritional disorder C Reactive Protein 3 Months M06.00 - Rheumatoid arthritis without rheumatoid factor, unspecified site, Z79.899 - Other assisted (current) drug therapy Erythrocyte Sedimentation Rate 3 Months M06.00 - Rheumatoid arthritis without rheumatoid factor, unspecified site, Z79.899 - Other adjunct faculty for medical terminology (current) drug therapy Medications: Refilled methotrexate sodium 15 mg (6 x 2.5 mg) PO QWEEK 72 tabs 0RF M06.00 - Rheumatoid arthritis without rheumatoid factor, unspecified site folic acid 1 mg PO DAILY 90 tabs 1RF M06.00 - Rheumatoid arthritis without rheumatoid factor, unspecified site Discontinued meloxicam Discontinued Reason: Patient no longer taking 7.5 mg PO DAILY PRN 15 tabs 1RF joint pain Coding Level of Care Code Est Pt Level 5 (60505) Diagnoses Seronegative rheumatoid arthritis M06.00 Long-term use of immunosuppressant medication Z79.899 Age-related osteoporosis without current pathological fracture M81.0 Osteoporosis type: age-related Presence of current pathological fracture: without current pathological fracture
== END 2023-07-29 11:48 | disposition home or self-care (01) ==
PROVIDERS: PCP Student in an Organized Health Care Education/Training Program; Visit Provider Student in an Organized Health Care Education/Training Program
DX: M06.09 Rheumatoid arthritis without rheumatoid factor, multiple sites (principal); Z79.899 Other long term (current) drug therapy; M81.0 Age-related osteoporosis without current pathological fracture
CPT/HCPCS: 99215

== ENCOUNTER → 2023-07-29 11:08 | Outpatient (BNVA) | payer MEDICARE, SELFPAY | PROVIDERS: PCP Student in an Organized Health Care Education/Training Program; Visit Provider Student in an Organized Health Care Education/Training Program | DX: M06.00 Rheumatoid arthritis without rheumatoid factor, unspecified site (principal); Z79.899 Other long term (current) drug therapy; M18.0 Bilateral primary osteoarthritis of first carpometacarpal joints | CPT/HCPCS: 99212 ==

== ENCOUNTER 2023-10-22 14:20 | Outpatient (REF) | payer MEDICARE, SELFPAY ==
[2023-10-22 14:49] LABS: MANUAL DIFF FLAG NO
[2023-10-22 15:22] LABS: Basophils Absolute Auto 0.1 X10*3/uL (0.0-0.2); Basophils Percent Auto 1.6 % (0-2); Eosinophils Absolute Auto 0.2 X10*3/uL (0.0-0.4); Eosinophils Percent Auto 2.6 % (0-4); Hematocrit 40.9 % (37.0-47.0); Hemoglobin 13.8 g/dl (12.0-16.0); Imm Gran Abs Auto 0.01 X10*3/uL (0.00-0.03); Imm Gran Pct Auto 0.2 % (0.0-0.4); Lymphocytes Absolute Auto 1.1 X10*3/uL (1.2-4.9); Lymphocytes Percent Auto 18.3 % (20-40); Mean Corpuscular HGB Conc 33.7 g/dl (31.0-35.0); Mean Corpuscular Volume 97.8 fL (80.0-98.0); Monocytes Absolute Auto 0.5 X10*3/uL (0.1-1.2); Monocytes Percent Auto 8.7 % (2-11); Neutrophils Absolute Auto 4.3 x10*3/uL (2.0-8.3); Neutrophils Percent Auto 68.6 % (45-73); Platelet Count 253 X10*3/uL (160-400); Red Blood Count 4.18 X10*6/uL (4.20-5.50); Red Cell Distribution Width 14.2 % (11.0-16.0); White Blood Count 6.2 X10*3/uL (4.8-10.8)
[2023-10-22 15:45] LABS: Alanine Aminotransferase 16 U/L (0-31); Albumin Level 4.1 g/dL (3.5-5.0); Alkaline Phosphatase 74 U/L (39-117); Anion Gap 12 (12-20); Aspartate Amino Transferase 22 U/L (5-31); Bilirubin Total 0.7 mg/dL (0.0-1.0); Blood Urea Nitrogen 17 mg/dL (9-16); C Reactive Protein 0.71 mg/dL (< or = 0.50); Calcium 10.3 mg/dL (8.4-10.2); Carbon Dioxide 28 mmol/L (22-29); Chloride 103 mmol/L (96-108); Estimated Glomerular Filt Rate > 60; Glucose Random 96 mg/dL (60-115); Potassium 4.4 mmol/L (3.3-5.1); Sodium 139 mmol/L (135-145); Total Protein 7.4 g/dL (6.5-8.0)
[2023-10-22 16:18] LABS: Erythrocyte Sedimentation Rate 10 MM/HR (0-20)
[2023-10-24 12:11] LABS: Vitamin D 25-OH Total 72.7 ng/mL (>30)
== END 2023-10-22 14:21 | disposition home or self-care (01) ==
LOC: HO.LAB 14:20
PROVIDERS: Visit Provider Student in an Organized Health Care Education/Training Program
DX: M06.00 Rheumatoid arthritis without rheumatoid factor, unspecified site (principal); Z79.899 Other long term (current) drug therapy
CPT/HCPCS: 36415; 80053; 82306; 85025; 85652; 86140

== ENCOUNTER 2023-10-29 13:32 | Outpatient (AMB) | payer MEDICARE, SELFPAY ==
--- NOTE | 2023-10-29 13:42 | A.OFFVIS_ITS ---
Vital Signs 10/29/23 13:43 Height 5 ft 3.74 in Weight 151 lb 0.266 oz BMI 26.1 BP 130/68 Blood Pressure Location Rt brachial Position Sitting Pulse 67 Pulse Source Pulse Oximeter Pulse Oximetry (%) 95 Oxygen Delivery Method Room Air Intake Visit Reasons: RA Intake Note: Patient present today for RA follow up visit. Corporate Giving Manager Required: No Accompanied by: Self / Same As Patient Allergies hydroxychloroquine [From Plaquenil] Adverse Reaction (Intermediate, Verified 10/29/23 13:46) Rash Sulfa (Sulfonamide Antibiotics) Adverse Reaction (Intermediate, Verified 10/29/23 13:46) Rash Medication List - Last Reconciled 10/29/23 by Bulmaro Steve MD albuterol sulfate 90 mcg/actuation 1 puff PO Q6H PRN budesonide-formoterol 160-4.5 mcg/actuation (Symbicort) 2 puffs inhalation BID PRN cholecalciferol (vitamin D3) 250 mcg PO DAILY fluticasone propionate 110 mcg/actuation (Flovent HFA) 1 puff inhalation DAILY fluticasone propionate 50 mcg/actuation 2 sprays intranasal DAILY 30 days folic acid 1 mg PO DAILY loratadine 10 mg PO DAILY 30 days methotrexate sodium 15 mg (6 x 2.5 mg) PO QWEEK mometasone 0.1% appl topical BID triamcinolone acetonide 0.1% appl topical DAILY HPI Comments Details: This is a 77-year-old female with seronegative RA who presents for follow-up. On methotrexate 15 mg weekly and folic acid 1 mg daily. Continues to feel about the same overall. She has felt that she has some fatigue. She attributes it to being 78 years old now. She does not have any swollen or painful joints. Denies any significant stiffness. Denies any fevers. Or weight loss. She has not had any falls or fractures since last visit. She remains off alendronate She states that she is doing well overall. She gets intermittent aching of her left thumb. She mentions that she was evaluated by [facility] 4-6 months ago for back pain. She states that she gets back pain with activity and improved with rest. She was prescribed meloxicam and physical therapy. She was not able to do the physical therapy in time and the order . She is doing well otherwise. Previous visit by Dr. Infante 01/2023: The patient returns for evaluation of her rheumatoid arthritis. She remains on methotrexate 15 mg weekly and folic acid 1 mg daily. We had stopped her prednisone back in September. She has remained off it. She still is taking alendronate 70 mg weekly for osteoporosis. She last had a bone density study at [place] last year. This showed some improvement in the lumbar spine region as compared to previously. We would continue the alendronate because of her continued use of prednisone. She has been experiencing some low back pain. This is usually occurring when she is more active. She does have an orthopedic evaluation for that planned in a week or 2. There has been no previous back injury or surgery on the back. Symptoms do not seem seem to radiate more distally than just the buttock area on the right. FORMERLY [facility] Medical History Dyspnea Chronic allergic rhinitis Murmur Asthma Surgical History History of ear surgery Family History Father Esophageal cancer Brother Alzheimer disease Social History Household Members: Spouse Alcohol intake: former Patient Tobacco Use Status: Never used Tobacco Review of Systems Const Reports fatigue, Denies fever(s) and Denies weight loss Musc Reports back pain, Denies joint swelling, Denies numbness and Denies tingling Neuro Denies numbness and Denies tingling Endo Reports fatigue Physical Exam Vital Signs: Last Vital Signs Pulse 67 10/29/23 13:43 BP 130/68 10/29/23 13:43 Pulse Ox 95 10/29/23 13:43 Oxygen Delivery Method Room Air 10/29/23 13:43 BMI result Body Mass Index 26.1 Const General: cooperative, healthy appearing and comfortable Nutritional Appearance: average body habitus Orientation/consciousness: patient oriented x3 Limitations: no limitations HEENT Head: Yes normocephalic and Yes atraumatic Mouth: moist mucous membranes Resp Effort & Inspection: normal respiratory effort and able to speak in complete sentences Cardio Rate: regular rate Rhythm: regular rhythm Skin General skin exam: no rashes or lesions noted Neuro General: patient oriented x3 Extrem Other: Osteoarthritic changes of both hands with no active synovitis Mild bilateral 1st CMC joint tenderness No knee pain with flexion-extension bilaterally Negative straight leg raise test bilaterally Assessment & Plan Assessment & Plan (1) Seronegative rheumatoid arthritis: Comment: Onset in about 2016 with PMR like picture. In 2021 she developed more small joint synovitis in the hands. RF in 2018. -ve CCP In 2018 treatment trial HCQ and then sulfasalazine was aborted because of skin rashes. 01/2022: methotrexate started, effective Code(s): M06.00 - Rheumatoid arthritis without rheumatoid factor, unspecified site Category: Medical Plan: This is a 77-year-old female with seronegative RA who presents for follow-up. O n methotrexate 15 mg weekly. There is no active synovitis on exam however patient has been having denies fatigue. Inflammatory markers remain mildly elevated. Possible ongoing mild RA disease activity. Increase methotrexate to 20 mg weekly split dose Continue folic acid 1 mg daily Her fatigue might also be related to her mild hypercalcemia. Will check hypercalcemia workup next set of labs. Labs before next visit in 3 months (2) Long-term use of immunosuppressant medication: Code(s): Z79.899 - Other director long term care (current) drug therapy Category: Medical Plan: Monitor safety labs (3) Osteoporosis: Comment: Bone density 06/09/07 T -4.2 spine, -2.2 hip, -2.4 fem neck, -3.5 spine 2009 DEXA 2018 L-spine T-score -4.2, left hip T-score -2.3 DEXA 08/2021 L-spine T-score -3.8, left hip T-score -2.3 Alendronate: [id number]; restarted 2016- DC 01/2023 DEXA 05/2023 L-spine T-score -3.7 total hip T-score-2 point all femoral neck T- score -2.6 Code(s): M81.0 - Age-related osteoporosis without current pathological fracture Category: Medical Qualifiers: Osteoporosis type: age-related Presence of current pathological fracture: without current pathological fracture Qualified Code(s): M81.0 - Age- related osteoporosis without current pathological fracture Plan: Bone density improved on alendronate. Will continue to hold alendronate. Plan to repeat DEXA early 2025 Discussed the importance of avoiding falls. Continue with calcium and vitamin-D supplementation. Plan I spent 44 minutes reviewing patient's chart, evaluating patient, ordering diagnostic workup, counseling patient and documenting in the chart Orders: Orders Complete Blood Count Auto Diff 3 Months M06.00 - Rheumatoid arthritis without rheumatoid factor, unspecified site, Z79.899 - Other director long term care (current) drug therapy Comprehensive Met. Panel 3 Months M06.00 - Rheumatoid arthritis without rheumatoid factor, unspecified site, Z79.899 - Other director long term care (current) drug therapy C Reactive Protein 3 Months M06.00 - Rheumatoid arthritis without rheumatoid factor, unspecified site, Z79.899 - Other correction (current) drug therapy Erythrocyte Sedimentation Rate 3 Months M06.00 - Rheumatoid arthritis without rheumatoid factor, unspecified site, Z79.899 - Other correction (current) drug therapy Phosphorus 3 Months E83.52 - Hypercalcemia Parathyroid Hormone Intact 3 Months E83.52 - Hypercalcemia Protein Electrophoresis, Serum 3 Months E83.52 - Hypercalcemia Magnesium 3 Months E83.52 - Hypercalcemia Vitamin D 25-OH (D2 and D3) 3 Months Z13.21 - Encounter for screening for nutritional disorder TSH reflex Free T4 3 Months E83.52 - Hypercalcemia Medications: Changed From methotrexate sodium 15 mg (6 x 2.5 mg) PO QWEEK 72 tabs 0RF M06.00 - Rheumatoid arthritis without rheumatoid factor, unspecified site To methotrexate sodium 4 tabs Saturday morning and 4 tabs Saturday morning 20 mg (8 x 2.5 mg) PO QWEEK 96 tabs 0RF M06.00 - Rheumatoid arthritis without rheumatoid factor, unspecified site Coding Level of Care Code Est Pt Level 4 (01908) Complex EM visit Add On G2211 Diagnoses Seronegative rheumatoid arthritis M06.00 Long-term use of immunosuppressant medication Z79.899 Age-related osteoporosis without current pathological fracture M81.0 Osteoporosis type: age-related Presence of current pathological fracture: without current pathological fracture
[2023-10-29 13:43] VITALS: BP 130/68; PULSE 67; O2SAT 95; BMI 26.1
== END 2023-10-29 14:24 | disposition home or self-care (01) ==
PROVIDERS: PCP Student in an Organized Health Care Education/Training Program; Visit Provider Student in an Organized Health Care Education/Training Program
DX: M06.00 Rheumatoid arthritis without rheumatoid factor, unspecified site (principal); Z79.899 Other long term (current) drug therapy; M81.0 Age-related osteoporosis without current pathological fracture
CPT/HCPCS: 99214; G2211

== ENCOUNTER → 2023-10-29 13:32 | Outpatient (BNVA) | payer MEDICARE, SELFPAY | PROVIDERS: PCP Student in an Organized Health Care Education/Training Program; Visit Provider Student in an Organized Health Care Education/Training Program | DX: M06.00 Rheumatoid arthritis without rheumatoid factor, unspecified site (principal); M81.0 Age-related osteoporosis without current pathological fracture; Z79.631 Long term (current) use of antimetabolite agent | CPT/HCPCS: 99212 ==

== ENCOUNTER 2024-01-27 13:50 | Outpatient (REF) | payer MEDICARE, SELFPAY ==
[2024-01-27 14:15] LABS: MANUAL DIFF FLAG NO
[2024-01-27 14:52] LABS: Basophils Absolute Auto 0.1 X10*3/uL (0.0-0.2); Basophils Percent Auto 1.2 % (0-2); Eosinophils Absolute Auto 0.3 X10*3/uL (0.0-0.4); Eosinophils Percent Auto 4.2 % (0-4); Hematocrit 38.2 % (37.0-47.0); Hemoglobin 12.6 g/dl (12.0-16.0); Imm Gran Abs Auto 0.02 X10*3/uL (0.00-0.03); Imm Gran Pct Auto 0.3 % (0.0-0.4); Lymphocytes Absolute Auto 0.9 X10*3/uL (1.2-4.9); Lymphocytes Percent Auto 15.5 % (20-40); Mean Corpuscular Hemoglobin 33.1 pg (27.0-33.0); Mean Corpuscular Volume 100.3 fL (80.0-98.0); Mean Platelet Volume 9.8 fL (9.4-12.3); Monocytes Absolute Auto 0.3 X10*3/uL (0.1-1.2); Monocytes Percent Auto 5.2 % (2-11); Neutrophils Absolute Auto 4.4 x10*3/uL (2.0-8.3); Neutrophils Percent Auto 73.6 % (45-73); Platelet Count 247 X10*3/uL (160-400); Red Blood Count 3.81 X10*6/uL (4.20-5.50); Red Cell Distribution Width 15.6 % (11.0-16.0)
[2024-01-27 15:14] LABS: Parathyroid Hormone Intact 82.5 pg/mL (8.7-77.1)
[2024-01-27 15:18] LABS: Alanine Aminotransferase 15 U/L (0-31); Albumin Level 3.9 g/dL (3.5-5.0); Alkaline Phosphatase 71 U/L (39-117); Anion Gap 11 (12-20); Aspartate Amino Transferase 18 U/L (5-31); Bilirubin Total 0.7 mg/dL (0.0-1.0); Blood Urea Nitrogen 14 mg/dL (9-16); C Reactive Protein 2.54 mg/dL (< or = 0.50); Calcium 10.1 mg/dL (8.4-10.2); Carbon Dioxide 27 mmol/L (22-29); Chloride 105 mmol/L (96-108); Estimated Glomerular Filt Rate > 60; Glucose Random 118 mg/dL (60-115); Magnesium 2.1 mg/dL (1.6-2.6); Phosphorus 2.1 mg/dL (2.7-4.5); Potassium 3.9 mmol/L (3.3-5.1); Sodium 139 mmol/L (135-145); Total Protein 7.1 g/dL (6.5-8.0)
[2024-01-27 15:25] LABS: TSH reflex Free T4 1.37 uIU/mL (0.32-4.0)
[2024-01-27 15:34] LABS: Erythrocyte Sedimentation Rate 18 MM/HR (0-20)
[2024-01-28 20:38] LABS: Prot Elec - Albumin 4.1 g/dL (3.8-4.8); Prot Elec - Alpha1 0.3 g/dL (0.2-0.3); Prot Elec - Alpha2 0.6 g/dL (0.5-0.9); Prot Elec - Beta 1 0.4 g/dL (0.4-0.6); Prot Elec - Beta 2 0.6 g/dL (0.2-0.5); Prot Elec - Gamma 0.9 g/dL (0.8-1.7); Prot Elec - Total Protein 6.9 g/dL (6.1-8.1)
[2024-01-30 21:22] LABS: Vitamin D 25-OH, D2 <4 ng/mL; Vitamin D 25-OH, D3 71 ng/mL; Vitamin D 25-OH, Total 71 ng/mL (30-100)
== END 2024-01-27 13:51 | disposition home or self-care (01) ==
LOC: HO.LAB 13:50
PROVIDERS: PCP Student in an Organized Health Care Education/Training Program; Visit Provider Student in an Organized Health Care Education/Training Program
DX: M06.00 Rheumatoid arthritis without rheumatoid factor, unspecified site (principal); Z79.899 Other long term (current) drug therapy; Z13.21 Encounter for screening for nutritional disorder; E83.52 Hypercalcemia
CPT/HCPCS: 36415; 80053; 82306; 83735; 83970; 84100; 84165; 84443; 85025; 85652; 86140

== ENCOUNTER 2024-01-31 13:37 | Outpatient (AMB) | payer MEDICARE, SELFPAY ==
--- NOTE | 2024-01-31 13:43 | MHC.OFFVIS ---
Vital Signs 01/31/24 13:46 Height 5 ft 3.74 in Weight 150 lb BMI 26.0 BP 128/78 Blood Pressure Location Lt brachial Position Sitting Pulse 86 Pulse Source Pulse Oximeter Pulse Oximetry (%) 96 Oxygen Delivery Method Room Air Intake Visit Reasons: RA Intake Note: Patient present today for follow up on RA, last seen on 10/29/2023, labs were also placed on this day. Allergies hydroxychloroquine [From Plaquenil] Adverse Reaction (Intermediate, Verified 10/29/23 13:46) Rash Sulfa (Sulfonamide Antibiotics) Adverse Reaction (Intermediate, Verified 10/29/23 13:46) Rash Medication List - Last Reconciled 01/31/24 by Bulmaro Steve MD albuterol sulfate 90 mcg/actuation 1 puff PO Q6H PRN budesonide-formoterol 160-4.5 mcg/actuation (Symbicort) 2 puffs inhalation BID PRN cholecalciferol (vitamin D3) 250 mcg PO DAILY fluticasone propionate 110 mcg/actuation (Flovent HFA) 1 puff inhalation DAILY fluticasone propionate 50 mcg/actuation 2 sprays intranasal DAILY 30 days folic acid 1 mg PO DAILY loratadine 10 mg PO DAILY 30 days methotrexate sodium 20 mg (8 x 2.5 mg) PO QWEEK mometasone 0.1% appl topical BID triamcinolone acetonide 0.1% appl topical DAILY HPI Comments Details: This is a 78-year-old female with seronegative RA who presents for follow-up. On methotrexate 20 mg weekly and folic acid 1 mg daily. She states that she feels reasonably well overall. Her joints have been doing quite well. Increasing methotrexate dose last visit did not give her any side effects. It may have helped her joints somewhat. She states that she has been having runny nose and increased sneezing over the last 1 or 2 weeks. Does not recall a fever or cough. She has noticed mild chest discomfort with deep breaths PENDING SALE TO [facility] Medical History Dyspnea Chronic allergic rhinitis Murmur Asthma Surgical History History of ear surgery Family History Father Esophageal cancer Brother Alzheimer disease Social History Household Members: Spouse Alcohol intake: former Patient Tobacco Use Status: Never used Tobacco Review of Systems Const Reports fatigue, Denies fever(s) and Denies weight loss ENT Details: Runny nose and increased sneezing Musc Reports back pain, Denies joint swelling, Denies numbness and Denies tingling Neuro Denies numbness and Denies tingling Endo Reports fatigue Physical Exam Vital Signs: Last Vital Signs Pulse 86 01/31/24 13:46 BP 128/78 01/31/24 13:46 Pulse Ox 96 01/31/24 13:46 Oxygen Delivery Method Room Air 01/31/24 13:46 BMI result Body Mass Index 26.0 Const General: cooperative, healthy appearing and comfortable Nutritional Appearance: average body habitus Orientation/consciousness: patient oriented x3 Limitations: no limitations HEENT Head: Yes normocephalic and Yes atraumatic Mouth: moist mucous membranes Resp Other: Mild anterior chest discomfort with deep breaths Effort & Inspection: normal respiratory effort and able to speak in complete sentences Cardio Rate: regular rate Rhythm: regular rhythm Skin General skin exam: no rashes or lesions noted Neuro General: patient oriented x3 Extrem Other: Osteoarthritic changes of both hands with no active synovitis Mild bilateral 1st CMC joint tenderness No knee pain with flexion-extension bilaterally Negative straight leg raise test bilaterally Assessment & Plan Assessment & Plan (1) Seronegative rheumatoid arthritis: Comment: Onset in about 2016 with PMR like picture. In 2021 she developed more small joint synovitis in the hands. RF in 2018. -ve [facility]CP In 2018 treatment trial HCQ and then sulfasalazine was aborted because of skin rashes. 01/2022: methotrexate started, effective Code(s): M06.00 - Rheumatoid arthritis without rheumatoid factor, unspecified site Category: Medical Plan: This is a 78-year-old female with seronegative RA who presents for follow-up. On methotrexate 20 mg weekly. Per patient increasing methotrexate from 15-20 mg last visit did not give her any side effects and may have provided some improvement in her inflammatory arthritis. There is no active synovitis on exam. Inflammatory markers are slightly elevated may be related to resolving upper respiratory tract infection Continue methotrexate to 20 mg weekly split dose Continue folic acid 1 mg daily Labs before next visit in 3 months (2) Long-term use of immunosuppressant medication: Code(s): Z79.899 - Other senior living (current) drug therapy Category: Medical Plan: Monitor safety labs (3) Osteoporosis: Comment: Bone density 06/09/07 T -4.2 spine, -2.2 hip, -2.4 fem neck, -3.5 spine 2009 DEXA 2018 L-spine T-score -4.2, left hip T-score -2.3 DEXA 08/2021 L-spine T-score -3.8, left hip T-score -2.3 Alendronate: [id number]; restarted 2017- DC 01/2023 DEXA 05/2023 L-spine T-score -3.7 total hip T-score-2 point all femoral neck T-score -2.6 Code(s): M81.0 - Age-related osteoporosis without current pathological fracture Category: Medical Qualifiers: Osteoporosis type: age-related Presence of current pathological fracture: without current pathological fracture Qualified Code(s): M81.0 - Age-related osteoporosis without current pathological fracture Plan: Her DEXA scan did improve on alendronate. However given her slightly increased PTH level, low phosphorus I will refer her to endocrinology (4) Increased PTH level: Code(s): R79.89 - Other specified abnormal findings of blood chemistry Category: Medical Plan: Referred to endocrinology (5) Chest discomfort: Code(s): R07.89 - Other chest pain Category: Medical Plan: With deep breaths. May be related to mild pleuritis. Symptoms quite minimal. Patient not interested in any further workup. Advised patient to let us know if symptoms get progressively worse and I will order a chest x-ray Plan I spent 34 minutes reviewing patient's chart, evaluating patient, ordering diagnostic workup, counseling patient and documenting in the chart Orders: Orders Complete Blood Count Auto Diff 3 Months M06.00 - Rheumatoid arthritis without rheumatoid factor, unspecified site, Z79.899 - Other senior living (current) drug therapy Comprehensive Met. Panel 3 Months M06.00 - Rheumatoid arthritis without rheumatoid factor, unspecified site, Z79.899 - Other meterman (current) drug therapy C Reactive Protein 3 Months M06.00 - Rheumatoid arthritis without rheumatoid factor, unspecified site, Z79.899 - Other senior living (current) drug therapy Erythrocyte Sedimentation Rate 3 Months M06.00 - Rheumatoid arthritis without rheumatoid factor, unspecified site, Z79.899 - Other meterman (current) drug therapy Referrals Endocrinology Referral R79.89 - Other specified abnormal findings of blood chemistry Coding Level of Care Code Est Pt Level 5 (59387) Diagnoses Seronegative rheumatoid arthritis M06.00 Long-term use of immunosuppressant medication Z79.899 Age-related osteoporosis without current pathological fracture M81.0 Osteoporosis type: age-related Presence of current pathological fracture: without current pathological fracture Increased PTH level R79.89 Chest discomfort R07.89
[2024-01-31 13:46] VITALS: BP 128/78; PULSE 86; O2SAT 96; BMI 26.0
== END 2024-01-31 14:11 | disposition home or self-care (01) ==
PROVIDERS: PCP Student in an Organized Health Care Education/Training Program; Visit Provider Student in an Organized Health Care Education/Training Program
DX: M06.09 Rheumatoid arthritis without rheumatoid factor, multiple sites (principal); Z79.899 Other long term (current) drug therapy; M81.0 Age-related osteoporosis without current pathological fracture; R79.89 Other specified abnormal findings of blood chemistry; R07.89 Other chest pain
CPT/HCPCS: 99214

== ENCOUNTER → 2024-01-31 13:37 | Outpatient (BNVA) | payer MEDICARE, SELFPAY | PROVIDERS: PCP Student in an Organized Health Care Education/Training Program; Visit Provider Student in an Organized Health Care Education/Training Program | DX: M06.00 Rheumatoid arthritis without rheumatoid factor, unspecified site (principal); M81.0 Age-related osteoporosis without current pathological fracture; R79.89 Other specified abnormal findings of blood chemistry; R07.89 Other chest pain; Z79.899 Other long term (current) drug therapy | CPT/HCPCS: 99212 ==

== ENCOUNTER 2024-02-20 13:20 | Outpatient (AMB) | payer MEDICARE, SELFPAY ==
[2024-02-20 13:28] VITALS: BP 150/74; PULSE 95; BMI 25.7
--- NOTE | 2024-02-20 13:28 | MHC.OFFVIS ---
Vital Signs 02/20/24 13:28 Height 5 ft 3.74 in Weight 148 lb 12.992 oz BMI 25.7 BP 150/74 H Blood Pressure Location Lt brachial Position Sitting Pulse 95 Pulse Source Pulse Oximeter Intake Visit Reasons: abnormal findings of blood chemistry-conf Intake Note: New patient present today for abnormal findings of blood chemistry. Director Safety Council Required: No Accompanied by: Self / Same As Patient Allergies hydroxychloroquine [From Plaquenil] Adverse Reaction (Intermediate, Verified 02/20/24 13:33) Rash Sulfa (Sulfonamide Antibiotics) Adverse Reaction (Intermediate, Verified 02/20/24 13:33) Rash Medication List - Last Reconciled 02/20/24 by Joseph Mayorga MD albuterol sulfate 90 mcg/actuation 1 puff PO Q6H PRN budesonide-formoterol 160-4.5 mcg/actuation (Symbicort) 2 puffs inhalation BID PRN cholecalciferol (vitamin D3) 250 mcg PO DAILY fluticasone propionate 110 mcg/actuation (Flovent HFA) 1 puff inhalation DAILY fluticasone propionate 50 mcg/actuation 2 sprays intranasal DAILY 30 days folic acid 1 mg PO DAILY loratadine 10 mg PO DAILY 30 days methotrexate sodium 20 mg (8 x 2.5 mg) PO QWEEK mometasone 0.1% appl topical BID triamcinolone acetonide 0.1% appl topical DAILY HPI Comments Details: This 78-year-old female found to have an elevated PTH. The patient sees Rheumatology for evaluation and management of osteoporosis. During the course of the workup, and elevated PTH was found the patient was sent to endocrinology. DEXA bone density showed T-score of-3.7 lumbar spine. Pt took alendronate for 5 yrs stooped 2 yrs ago. The patient has not had a fragility fracture. There is no history of kidney stones. No family hx of parathyroid problems or kidney stones She denies any use of hydrochlorothiazide or use of biotin PFSH Medical History Dyspnea Chronic allergic rhinitis Murmur Asthma Surgical History History of ear surgery Family History Father Esophageal cancer Brother Alzheimer disease Social History Household Members: Spouse Alcohol intake: former Patient Tobacco Use Status: Never used Tobacco Physical Exam Vital Signs: Last Vital Signs Pulse 95 02/20/24 13:28 BP 150/74 H 02/20/24 13:28 BMI result Body Mass Index 25.7 There are no Cushingoid features. Absence of blue sclera. Presence of kyphosis. Thyroid gland is of nl size and weighs 15 gms. There are no thyroid nodules palpated. Lungs CTA. Heart S1 S2 Reg R/R Abdominal exam benign. Muscle strength 5/5 . Examination of spine reveals absence of tenderness on palpation Assessment & Plan Assessment & Plan (1) Increased PTH level: Code(s): R79.89 - Other specified abnormal findings of blood chemistry Category: Medical Plan: This 78-year-old white female found to have an increase PTH on workup for osteoporosis. Differential diagnosis includes mild primary hyperparathyroidism versus spurious measurement of PTH and calcium. Plan is to repeat calcium albumin,phosphorus creatinine PTH and 24 hour urine for calcium and creatinine at [facility] ([facility]). If the results are consistent with primary hyperparathyroidism, can talk to patient about surgical exploration which would be an option as patient meets this criteria with the severe osteoporosis or if above lab results are normal, patient can follow-up with Rheumatology for discussion of anti osteoporosis pharmacologic therapy which could involve either Prolia or oral or intravenous bisphosphonate . I did talk with the patient and discussed with her the idea that surgical intervention for primary hyperparathyroidism is superior to medical treatment particularly in light of the fact she has a very low bone density in the lumbar spine Orders: Orders Calcium Today R7 - Other specified abnormal findings of blood chemistry Vitamin D 25-OH Total Today - Other specified abnormal findings of blood chemistry Calcium, 24 Hr Ur Today . - Other specified abnormal findings of blood chemistry Creatinine, 24 Hr Group Today R7 - Other specified abnormal findings of blood chemistry Phosphorus Today R7 - Other specified abnormal findings of blood chemistry Albumin Level Today R7 - Other specified abnormal findings of blood chemistry Parathyroid Hormone Intact Today R7 - Other specified abnormal findings of blood chemistry Coding Level of Care Code New Pt Level 4 (34209) Diagnoses Increased PTH level
== END 2024-02-20 14:09 | disposition home or self-care (01) ==
PROVIDERS: PCP Student in an Organized Health Care Education/Training Program; Visit Provider Internal Medicine Endocrinology, Diabetes & Metabolism
DX: R79.89 Other specified abnormal findings of blood chemistry (principal)
CPT/HCPCS: 99204

== ENCOUNTER → 2024-02-20 13:20 | Outpatient (BNVA) | payer MEDICARE, SELFPAY | PROVIDERS: PCP Student in an Organized Health Care Education/Training Program; Visit Provider Internal Medicine Endocrinology, Diabetes & Metabolism | DX: R79.89 Other specified abnormal findings of blood chemistry (principal) | CPT/HCPCS: 99202 ==

== ENCOUNTER 2024-03-17 16:01 | Outpatient (AMB) | payer MEDICARE, SELFPAY ==
[2024-03-17 16:03] VITALS: BP 124/78; PULSE 90; O2SAT 98; BMI 24.2
--- NOTE | 2024-03-17 16:03 | MHC.OFFVIS ---
Vital Signs 03/17/24 16:03 Height 5 ft 3.74 in Weight 139 lb 15.896 oz BMI 24.2 BP 124/78 Blood Pressure Location Lt brachial Position Sitting Pulse 90 Pulse Source Pulse Oximeter Pulse Oximetry (%) 98 Oxygen Delivery Method Room Air Intake Visit Reasons: RA/CM Intake Note: Patient is here for follow up on RA, not feeling well, she states she stopped taking med, Methotrexate. Now she is not feeling well with loss of appetite, tired, loss of weight, and weakness. Allergies hydroxychloroquine [From Plaquenil] Adverse Reaction (Intermediate, Verified 03/17/24 16:09) Rash Sulfa (Sulfonamide Antibiotics) Adverse Reaction (Intermediate, Verified 03/17/24 16:09) Rash Medication List - Last Reconciled 03/17/24 by Bulmaro Steve MD albuterol sulfate 90 mcg/actuation 1 puff PO Q6H PRN budesonide-formoterol 160-4.5 mcg/actuation (Symbicort) 2 puffs inhalation BID PRN cholecalciferol (vitamin D3) 250 mcg PO DAILY fluticasone propionate 110 mcg/actuation (Flovent HFA) 1 puff inhalation DAILY fluticasone propionate 50 mcg/actuation 2 sprays intranasal DAILY 30 days folic acid 1 mg PO DAILY loratadine 10 mg PO DAILY 30 days methotrexate sodium 20 mg (8 x 2.5 mg) PO QWEEK mometasone 0.1% appl topical BID triamcinolone acetonide 0.1% appl topical DAILY HPI Comments Details: This is a 78-year-old female with seronegative RA who presents for follow-up. About 4 weeks ago patient was having some fatigue. She attributed it to methotrexate. She discontinued it and per patient and her she got worse. She had more fatigue. She was sleeping all day. Was not eating much. Did not have an appetite. Denied any joint pains or aches. Denied any symptoms suggestive of an infection. Her symptoms are slowly improving now. She was evaluated by her PCP and had blood work done which was unremarkable. CT chest and abdomen were also ordered for evaluation. [facility] Medical History Dyspnea Chronic allergic rhinitis Murmur Asthma Surgical History History of ear surgery Family History Father Esophageal cancer Brother Alzheimer disease Social History Household Members: Spouse Alcohol intake: former Patient Tobacco Use Status: Never used Tobacco Review of Systems Const Reports fatigue, Denies fever(s) and Denies weight loss Musc Reports back pain, Denies joint swelling, Denies numbness and Denies tingling Neuro Denies numbness and Denies tingling Endo Reports fatigue Physical Exam Vital Signs: Last Vital Signs Pulse 90 03/17/24 16:03 BP 124/78 03/17/24 16:03 Pulse Ox 98 03/17/24 16:03 Oxygen Delivery Method Room Air 03/17/24 16:03 BMI result Body Mass Index 24.2 Const General: cooperative, healthy appearing and comfortable Nutritional Appearance: average body habitus Orientation/consciousness: patient oriented x3 Limitations: no limitations HEENT Head: Yes normocephalic and Yes atraumatic Mouth: moist mucous membranes Resp Effort & Inspection: normal respiratory effort and able to speak in complete sentences Cardio Rate: regular rate Rhythm: regular rhythm Skin General skin exam: no rashes or lesions noted Neuro General: patient oriented x3 Extrem Other: Osteoarthritic changes of both hands with no active synovitis Mild bilateral 1st CMC joint tenderness 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 In 2021 she developed more small joint synovitis in the hands. RF in 2018. -ve CCP In 2018 treatment trial HCQ and then sulfasalazine was aborted because of skin rashes. 01/2022: methotrexate started, effective Code(s): M06.00 - Rheumatoid arthritis without rheumatoid factor, unspecified site Category: Medical Plan: This is a 78-year-old female with seronegative RA who presents for follow-up. About 4 weeks ago patient was having some fatigue. She self-discontinued methotrexate. Per her fatigue worse. Her fatigue is improving now. There is no active synovitis on exam. Discussed with patient that there are multiple causes of fatigue. Her labs were unremarkable with no anemia, normal LFTs, creatinine. ESR normal. MCV elevated. No lab work suggestive of methotrexate toxicity. Increasing her methotrexate from 15 to 20 mg weekly may be implicated. Discussed with patient that there are multiple causes of fatigue and methotrexate is only 1 of them. Keep holding methotrexate at this time. Continue taking folic acid. Discussed with patient that if her fatigue does not improve over the coming few weeks she should follow-up with her PCP Labs before next visit in 2 months (2) Osteoporosis: Comment: Bone density 06/09/07 T -4.2 spine, -2.2 hip, -2.4 fem neck, -3.5 spine 2009 DEXA 2018 L-spine T-score -4.2, left hip T-score -2.3 DEXA 08/2021 L-spine T-score -3.8, left hip T-score -2.3 Alendronate: [id number]; restarted 2016- DC 01/2023 DEXA 05/2023 L-spine T-score -3.7 total hip T-score-2 point all femoral neck T-score -2.6 Code(s): M81.0 - Age-related osteoporosis without current pathological fracture Category: Medical Qualifiers: Osteoporosis type: age-related Presence of current pathological fracture: without current pathological fracture Qualified Code(s): M81.0 - Age-related osteoporosis without current pathological fracture Plan: Her DEXA scan did improve on alendronate. Labs showed increased PTH and low phos. She was evaluated by endocrinology and had repeat labs ordered. (3) Increased PTH level: Code(s): R79.89 - Other specified abnormal findings of blood chemistry Category: Medical Plan: As mentioned above Plan I spent 30 minutes reviewing patient's chart, evaluating patient, ordering diagnostic workup, counseling patient and documenting in the chart Orders: Orders Complete Blood Count Auto Diff Today M06.00 - Rheumatoid arthritis without rheumatoid factor, unspecified site C Reactive Protein Today M06.00 - Rheumatoid arthritis without rheumatoid factor, unspecified site Erythrocyte Sedimentation Rate Today M06.00 - Rheumatoid arthritis without rheumatoid factor, unspecified site Comprehensive Met. Panel Today M06.00 - Rheumatoid arthritis without rheumatoid factor, unspecified site TSH reflex Free T4 Today R53.83 - Other fatigue Coding Level of Care Code Est Pt Level 4 (94382) Diagnoses Seronegative rheumatoid arthritis M06.00 Age-related osteoporosis without current pathological fracture M81.0 Osteoporosis type: age-related Presence of current pathological fracture: without current pathological fracture Increased PTH level R79.89
== END 2024-03-17 16:30 | disposition home or self-care (01) ==
LOC: HO.RHE 16:01
PROVIDERS: PCP Family Medicine; Visit Provider Student in an Organized Health Care Education/Training Program
DX: M06.00 Rheumatoid arthritis without rheumatoid factor, unspecified site (principal); M81.0 Age-related osteoporosis without current pathological fracture; R79.89 Other specified abnormal findings of blood chemistry
CPT/HCPCS: 99214

== ENCOUNTER → 2024-03-17 16:01 | Outpatient (BNVA) | payer MEDICARE, SELFPAY | PROVIDERS: PCP Family Medicine; Visit Provider Student in an Organized Health Care Education/Training Program | DX: M06.00 Rheumatoid arthritis without rheumatoid factor, unspecified site (principal); M81.0 Age-related osteoporosis without current pathological fracture; R79.89 Other specified abnormal findings of blood chemistry | CPT/HCPCS: 99212 ==

== ENCOUNTER 2024-05-15 13:41 | Outpatient (REF) | payer MEDICARE, SELFPAY ==
[2024-05-15 13:54] LABS: MANUAL DIFF FLAG NO
[2024-05-15 14:12] LABS: Basophils Absolute Auto 0.1 X10*3/uL (0.0-0.2); Basophils Percent Auto 1.1 % (0-2); Eosinophils Absolute Auto 0.4 X10*3/uL (0.0-0.4); Eosinophils Percent Auto 5.5 % (0-4); Hematocrit 41.3 % (37.0-47.0); Hemoglobin 13.2 g/dl (12.0-16.0); Imm Gran Abs Auto 0.04 X10*3/uL (0.00-0.03); Imm Gran Pct Auto 0.5 % (0.0-0.4); Lymphocytes Absolute Auto 1.8 X10*3/uL (1.2-4.9); Lymphocytes Percent Auto 23.4 % (20-40); Mean Corpuscular Hemoglobin 30.3 pg (27.0-33.0); Mean Corpuscular Volume 94.9 fL (80.0-98.0); Mean Platelet Volume 9.6 fL (9.4-12.3); Monocytes Absolute Auto 0.5 X10*3/uL (0.1-1.2); Monocytes Percent Auto 6.8 % (2-11); Neutrophils Absolute Auto 4.7 x10*3/uL (2.0-8.3); Neutrophils Percent Auto 62.7 % (45-73); Platelet Count 279 X10*3/uL (160-400); Red Blood Count 4.35 X10*6/uL (4.20-5.50); Red Cell Distribution Width 14.2 % (11.0-16.0); White Blood Count 7.5 X10*3/uL (4.8-10.8)
[2024-05-15 14:49] LABS: Erythrocyte Sedimentation Rate 24 MM/HR (0-20)
[2024-05-15 14:59] LABS: Alanine Aminotransferase 9 U/L (0-31); Albumin Level 3.5 g/dL (3.5-5.0); Alkaline Phosphatase 86 U/L (39-117); Anion Gap 9 (12-20); Aspartate Amino Transferase 21 U/L (5-31); Bilirubin Total 0.5 mg/dL (0.0-1.0); Blood Urea Nitrogen 13 mg/dL (9-16); Calcium 9.4 mg/dL (8.4-10.2); Carbon Dioxide 27 mmol/L (22-29); Chloride 105 mmol/L (96-108); Estimated Glomerular Filt Rate > 60; Glucose Random 110 mg/dL (60-115); Potassium 3.7 mmol/L (3.3-5.1); Sodium 137 mmol/L (135-145); Total Protein 7.4 g/dL (6.5-8.0)
--- OUTSIDE RECORDS SUMMARY | 2024-05-15 15:12 | XMS_ITS ---
Author Name [facility] Organization Unknown Results Test Name/Text Value Interpretation Date Range Source Citation Ref Lab Test The technical components of this case were performed at [address] [address] CLIA # [id number] Normal [id number] [facility] Clinical Information In cyto Normal [id number] [facility] Citation Ref Lab Test The technical components of this case were performed at [address] [address] CLIA # [id number] Normal [id number] [facility] History of Medication Use Medication Directions Dispensed Refills Start Date End Date Stat fluticasone propionate (FLONASE) 50 mcg/actuation nasal spray 1 [place] by Nasal route daily. Each nostril 05/01/2024 05/12/9999 active dexAMETHasone (DECADRON) injection 4 mg 4 mg, intravenous, Once as needed, nausea and vomitting, Starting on Sat04/29/24 at 1437, For 1 dose, Administer 2nd unless given in OR 05/01/2024 05/12/9999 active albuterol HFA (PROAIR HFA ; PROVENTIL HFA ; VENTOLIN HFA) 90 mcg/actuation inhaler Inhale 2 Puffs into the lungs every 4 hours as needed for Shortness of Breath for up to 180 days. 05/01/2024 05/12/9999 active cholecalciferol (VITAMIN D-3) 25 mcg (1,000 unit) tablet Take 2 Tabs by mouth daily. 05/01/2024 05/12/9999 active methotrexate 2.5 mg tablet 05/01/2024 05/12/9999 active oxyCODONE (ROXICODONE) immediate release tablet 5 mg 5 mg, oral, Every 4 hours PRN, moderate pain, severe pain, for pain 4-6, Starting on Sat04/29/24 at 1437, For 2 doses 05/01/2024 05/12/9999 active sodium chloride 0.9 % flush 10 mL [Order 1 Start] Name: Insert peripheral IV Signed Summary: STAT, Once, On Sat04/29/24 at 1037, For 1 occurrence, Preprocedure [Order 1 End] [Order 2 Start] Name: Maintain IV access Signed Summary: Until discontinued, Starting on Sat04/29/24 at 1037, Until Specified, Preprocedure [Order 2 End] [Ord 05/01/2024 05/12/9999 active ipratropium-albuteroL (DUONEB) 0.5-2.5 mg/3 mL nebulizer solution 3 mL 3 mL, nebulization, Once as needed, wheezing, Starting on Sat04/29/24 at 1437, For 1 dose 05/01/2024 05/12/9999 active loratadine (CLARITIN) 10 mg tablet Take 10 mg by mouth daily. 05/01/2024 05/12/9999 active folic acid (FOLVITE) 1 mg tablet TAKE ONE TABLET BY MOUTH EVERY DAY 05/01/2024 05/12/9999 active Problems Problem Status Onset Date Problem Type Date of Resolution Source Hyperparathyroidism active 2012-11-10 2 ProblemAct [facility] HBP (high blood pressure) active 8 ProblemAct [facility] Pulmonary nodules/lesions, multiple active 2014-05-13 3 ProblemAct [facility] Polymyalgia rheumatica active 2017-02-11 7 ProblemAct [facility] Pain active EncounterDiagnosisAct [facility] Rhinitis, chronic active 2019-04-12 0 ProblemAct [facility] Hypercholesteremia active 8 ProblemAct [facility] Vitamin D deficiency active 2009-05-14 2 ProblemAct [facility] Primary osteoarthritis of both hands active 2018-06-14 5 ProblemAct [facility] Osteoporosis active 8 ProblemAct [facility] Asthma active 9 ProblemAct [facility] 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 6 ProblemAct [facility] Immunizations Vaccine Date Source Lot Number Status Influenza Quadravalent, 0.5m l (Fluad) 65yo and older 02/16/2020 [facility] completed PPD Test 09/10/2017 [facility] [id number] completed Influenza, Unspecified 02/16/2020 [facility] co mpleted Influenza trivalent, with pr eservative (Fluzone; Afluria) 6mo and older 03/19/2014 [facility] [id number] completed Influenza trivalent, 0.5mL ( Fluzone High-dose) 65yo and older 02/24/2021 [facility] [id number] comple gregory Influenza trivalent, 0.5mL ( Fluad) 65yo and older 03/12/2024 [facility] [id number] completed Influenza trivalent, 0.5mL ( Fluzone High-dose) 65yo and older 01/31/2018 [facility] [id number] comple gregory Q2ebanking SARS-CoV-2 COVID-19, mRNA, LNP-S, preservative free 07/08/2020 [facility] [id number] completed Q2ebanking SARS-CoV-2 COVID-19, mRNA, LNP-S, preservative free 06/17/2020 [facility] [id number] completed Influenza trivalent, with pr eservative (Fluzone; Afluria) 6mo and older 03/09/2015 [facility] [id number] completed Pneumococcal polysaccharide 23 valent (Pneumovax 23) 2yo and older 03/26/2001 [facility] com pleted Influenza trivalent, with pr eservative (Fluzone; Afluria) 6mo and older 03/29/2011 [facility] [id number] completed Influenza Quadravalent, 0.5m l (Fluzone High-dose) 65yo and older 03/12/2023 [facility] [id number] comple gregory Influenza trivalent, 0.5mL ( Fluzone High-dose) 65yo and older 02/28/2022 [facility] [id number] comple gregory Influenza trivalent, with pr eservative (Fluzone; Afluria) 6mo and older 01/23/2012 [facility] [id number] completed Influenza trivalent, with pr eservative (Fluzone; Afluria) 6mo and older 02/12/2013 [facility] [id number] completed Influenza trivalent, 0.5mL ( Fluzone High-dose) 65yo and older 02/29/2016 [facility] [id number] comple gregory Td Tetanus diptheria (Tdvax) 7yo and older 01/18/2009 [facility] [id number] completed Influenza trivalent, with pr eservative (Fluzone; Afluria) 6mo and older 03/03/2019 [facility] completed Influenza Quadravalent, MDCK , 0.5ml, with preservative (Flucelvax) 6mo and older 03/15/2017 [facility] [id number] completed Pneumococcal polysaccharide 23 valent (Pneumovax 23) 2yo and older 01/18/2009 [facility] [id number] com pleted Pneumococcal conjugate 13 va lent (Prevnar 13, PCV13) 2mo and older 11/04/2014 [facility] [id number] complet ed Influenza trivalent, 0.5mL ( Fluzone High-dose) 65yo and older 03/04/2019 [facility] comple gregory Influenza trivalent, with pr eservative (Fluzone; Afluria) 6mo and older 02/17/2010 [facility] [id number] completed Td Tetanus diptheria (Tdvax) 7yo and older 02/24/2021 [facility] [id number] completed
[2024-05-15 15:16] LABS: TSH reflex Free T4 1.93 uIU/mL (0.32-4.0)
== END 2024-05-15 13:42 | disposition home or self-care (01) ==
LOC: HO.LAB 13:41
PROVIDERS: PCP Family Medicine; Visit Provider Student in an Organized Health Care Education/Training Program
DX: M06.00 Rheumatoid arthritis without rheumatoid factor, unspecified site (principal); R53.83 Other fatigue; Z79.899 Other long term (current) drug therapy
CPT/HCPCS: 36415; 80053; 84443; 85025; 85652; 86140

== ENCOUNTER 2024-05-18 13:02 | Outpatient (AMB) | payer MEDICARE, SELFPAY ==
--- NOTE | 2024-05-18 13:14 | A.OFFVIS_ITS ---
Vital Signs 05/18/24 13:20 Height 5 ft 3.74 in Weight 136 lb 3.931 oz BMI 23.6 BP 142/80 H Blood Pressure Location Lt brachial Position Sitting Pulse 71 Pulse Source Pulse Oximeter Pulse Oximetry (%) 97 Oxygen Delivery Method Room Air Intake Visit Reasons: RA Intake Note: Patient presents for RA. Allergies hydroxychloroquine [From Plaquenil] Adverse Reaction (Intermediate, Verified 05/18/24 13:18) Rash Sulfa (Sulfonamide Antibiotics) Adverse Reaction (Intermediate, Verified 05/18/24 13:18) Rash Medication List - Last Reconciled 05/18/24 by Bulmaro Steve MD albuterol sulfate 90 mcg/actuation 1 puff PO Q6H PRN budesonide-formoterol 160-4.5 mcg/actuation (Symbicort) 2 puffs inhalation BID PRN cholecalciferol (vitamin D3) 250 mcg PO DAILY fluticasone propionate 110 mcg/actuation (Flovent HFA) 1 puff inhalation DAILY fluticasone propionate 50 mcg/actuation 2 sprays intranasal DAILY 30 days folic acid 1 mg PO DAILY loratadine 10 mg PO DAILY 30 days methotrexate sodium 10 mg PO QWEEK mometasone 0.1% appl topical BID triamcinolone acetonide 0.1% appl topical DAILY HPI Comments Details: This is a 78-year-old female with seronegative RA who presents for follow-up. S he is on methotrexate 10 mg daily. She states that her joints are doing well overall. She has been having some right knee pain, some stiffness but it does not affect her walking. Apparently patient had a CT chest which showed enlarging nodules, she had a bronchoscopy with biopsy which was consistent with organizing pneumonia. She was evaluated by gas appliance installer Dr. Lutz and prescribed prednisone taper starting at 40 mg a day along with atovaquone for PCP prophylaxis. Patient stated that she did not start the treatment as her co-pay for atovaquone was more than [address] abdomen showed an aneurysm and she was evaluated by vascular surgery. She is planned for endovascular procedure tomorrow. Her symptoms of fatigue and over sleeping seems to have resolved since last visit. [facility] Medical History Dyspnea Chronic allergic rhinitis Murmur Asthma Surgical History History of ear surgery Family History Father Esophageal cancer Brother Alzheimer disease Social History Household Members: Spouse Alcohol intake: former Patient Tobacco Use Status: Never used Tobacco Review of Systems Const Denies fatigue and Denies weakness Musc Reports arthralgias, Denies joint swelling and Reports stiffness Neuro Denies weakness Endo Denies fatigue Physical Exam Vital Signs: Last Vital Signs Pulse 71 05/18/24 13:20 BP 142/80 H 05/18/24 13:20 Pulse Ox 97 05/18/24 13:20 Oxygen Delivery Method Room Air 05/18/24 13:20 BMI result Body Mass Index 23.6 Const General: cooperative, healthy appearing and comfortable Nutritional Appearance: average body habitus Orientation/consciousness: patient oriented x3 Limitations: no limitations HEENT Head: Yes normocephalic and Yes atraumatic Resp Effort & Inspection: normal respiratory effort and able to speak in complete sentences Auscultation: clear to auscultation bilaterally Cardio Rate: regular rate Rhythm: regular rhythm Skin General skin exam: no rashes or lesions noted Neuro General: patient oriented x3 Extrem Other: Osteoarthritic changes of both hands with no active synovitis Mild bilateral 1st CMC joint tenderness 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 In 2021 she developed more small joint synovitis in the hands. RF in 2018. -ve CCP In 2018 treatment trial HCQ and then sulfasalazine was aborted because of skin rashes. 01/2022: methotrexate started, effective Code(s): M06.00 - Rheumatoid arthritis without rheumatoid factor, unspecified site Category: Medical Plan: This is a 78-year-old female with seronegative RA who presents for follow-up. On methotrexate 4 tablets weekly. Doing well overall. On exam she has minimal synovitis affecting her right knee. Patient was recently diagnosed with organizing pneumonia and is planned to start prednisone course. I think her synovitis will improve as soon as prednisone is started. It seems that patient had some side effects of generalized fatigue and weakness when she was taking higher dose of methotrexate Keep methotrexate at 10 mg a day. 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 Lutz and planned to start prednisone course along with atovaquone for PCP prophylaxis Per Dr. Lutz some labs were ordered and were negative including MERRICK/RF/CCP/SSA/SSB/PR3/MPO Myositis panel pending Plan I spent 30 minutes reviewing patient's chart, evaluating patient, ordering diagnostic workup, counseling patient and documenting in the chart Orders: Orders Comprehensive Met. Panel 3 Months M06.00 - Rheumatoid arthritis without rheumatoid factor, unspecified site Erythrocyte Sedimentation Rate 3 Months M06.00 - Rheumatoid arthritis without rheumatoid factor, unspecified site Complete Blood Count Auto Diff 3 Months M06.00 - Rheumatoid arthritis without rheumatoid factor, unspecified site C Reactive Protein 3 Months M06.00 - Rheumatoid arthritis without rheumatoid factor, unspecified site Medications: Changed From methotrexate sodium 4 tabs Saturday morning and 4 tabs Saturday morning 20 mg (8 x 2.5 mg) PO QWEEK 96 tabs 0RF M06.00 - Rheumatoid arthritis without rheumatoid factor, unspecified site To methotrexate sodium 10 mg PO QWEEK M06.00 - Rheumatoid arthritis without rheumatoid factor, unspecified site Coding Level of Care Code Est Pt Level 4 (16147) Complex EM visit Add On G2211 Diagnoses Seronegative rheumatoid arthritis M06.00 Long-term use of immunosuppressant medication Z79.899 Organizing pneumonia J84.89
[2024-05-18 13:20] VITALS: BP 142/80; PULSE 71; O2SAT 97; BMI 23.6
== END 2024-05-18 13:52 | disposition home or self-care (01) ==
PROVIDERS: PCP Family Medicine; Visit Provider Student in an Organized Health Care Education/Training Program
DX: M06.00 Rheumatoid arthritis without rheumatoid factor, unspecified site (principal); Z79.899 Other long term (current) drug therapy; J84.89 Other specified interstitial pulmonary diseases
CPT/HCPCS: 99214; G2211

== ENCOUNTER → 2024-05-18 13:02 | Outpatient (BNVA) | payer MEDICARE, SELFPAY | PROVIDERS: PCP Family Medicine; Visit Provider Student in an Organized Health Care Education/Training Program | DX: M06.00 Rheumatoid arthritis without rheumatoid factor, unspecified site (principal); J84.89 Other specified interstitial pulmonary diseases; Z79.899 Other long term (current) drug therapy | CPT/HCPCS: 99212 ==

== ENCOUNTER 2024-12-09 14:18 | Outpatient (AMB) | payer MEDICARE, SELFPAY ==
--- NOTE | 2024-12-09 14:18 | MHC.OFFVIS ---
Vital Signs 12/09/24 14:28 Height 5 ft 3.74 in Weight 143 lb 8.335 oz BMI 24.8 BP 140/80 H Blood Pressure Location Lt brachial Position Sitting Pulse 85 Pulse Source Pulse Oximeter Pulse Oximetry (%) 98 Oxygen Delivery Method Room Air Intake Visit Reasons: RA Intake Note: Patient presents for RA follow up. Allergies hydroxychloroquine (From Plaquenil) Adverse Reaction (Intermediate, Verified 12/09/24 14:23) Rash Sulfa (Sulfonamide Antibiotics) Adverse Reaction (Intermediate, Verified 12/09/24 14:23) Rash Medication List - Last Reconciled 12/09/24 by Cheryl Gongora MD albuterol sulfate 90 mcg/actuation 1 puff PO Q6H PRN atorvastatin 40 mg PO BEDTIME budesonide-formoterol 160-4.5 mcg/actuation (Symbicort) 2 puffs inhalation BID PRN cholecalciferol (vitamin D3) 250 mcg PO DAILY clopidogrel 75 mg PO DAILY fluticasone propionate 110 mcg/actuation (Flovent HFA) 1 puff inhalation DAILY fluticasone propionate 50 mcg/actuation 2 sprays intranasal DAILY 30 days loratadine 10 mg PO DAILY 30 days mometasone 0.1% appl topical BID triamcinolone acetonide 0.1% appl topical DAILY HPI Comments Details: Patient is an 79-year-old female with hyperlipidemia complicated by coronary artery disease, polyarticular osteoarthritis including degenerative disc disease of the spine, osteoporosis and seronegative rheumatoid arthritis here today for follow up Interval History: Patient last seen 05/18/[address] Steve - On Mtx 10mg weekly - Recent diagnosis of organizing PNA on prednisone (CT chest showed organizing PNA and biopsy confirmed) - Had some synovitis on exam but no changes made to medication since she was starting prednisone for her lungs Since then myositis panel shows +ve SRP Ab (76 (<11) Since then - completed the prednisone taper and had repeat scans were improved (Dr. Lutz, [place]) - Mtx stopped by pulm - 1 month ago, patient slurred her words - Concern for CVA/TIA - CT scan was normal, discharged after a few days - This has recurred x 2 with subsequent hospitalizations - MRI Brain was unremarkable - ?carotid doppler - Started on ASA and plavix Today - Denies any joint issues - No muscle weakness - Concerned about her neuro sx Rheumatologic History: Seronegative RA Onset in about 2017 with PMR like picture. In 2021 she developed more small joint synovitis in the hands. RF in 2018. -ve CCP In 2018 treatment trial HCQ and then sulfasalazine was aborted because of skin rashes. 01/2022: methotrexate started, effective Current Rheumatology Medication(s): Methotrexate 10mg weekly (not taking) Folic acid 1 mg daily PFSH Medical History Dyspnea Chronic allergic rhinitis Murmur Asthma Surgical History History of ear surgery Family History Father Esophageal cancer Brother Alzheimer disease Social History Household Members: Spouse Alcohol intake: former Patient Tobacco Use Status: Never used Tobacco Review of Systems Const Details: Review of Systems Constitutional: Denies fever, chills, weight loss ENT: Denies vision changes, eye pain or eye redness, dental caries, dry mouth GI: Denies nausea, vomiting, diarrhea, abdominal pain, change in BM Pulm: Denies SOB, CHOU, hemoptysis, wheezing Cards: Denies chest pain, palpitations Skin: Denies Raynaud's, rash, nail changes, photosensitivity, EDM OPERATOR: Denies headaches MSK: as per HPI All other systems reviewed and are unremarkable except noted above Physical Exam Exam Exam: Vital signs reviewed Physical Examination CONSTITUITIONAL Patient alert and cooperative. Well appearing and in no apparent painful distress Hyperkyphotic HEENT Conjunctiva and sclera clear. No lymphadenopathy. CHEST/RESPIRATORY SYSTEM Normal respiratory effort and able to speak in complete sentences. Clear to auscultation bilaterally. No crackles, rales, rhonchi, wheezes heard. CARDIAC SYSTEM Regular rate and rhythm. 3/6 sys murmur. Radial pulses intact bilaterally MSK Hands Right Hand: Able to make a fist. No swelling or tenderness to palpation of these joints. Left Hand: Able to make a fist. No swelling or tenderness to palpation of these joints. Herbedens nodes noted bilaterally Wrists Right Wrist: Full ROM. 70 degrees of wrist flexion, 80 degrees of wrist extension. No swelling or TTP Left Wrist: Full ROM. 70 degrees of wrist flexion, 80 degrees of wrist extension. No swelling or TTP Elbows Right Elbow: Full ROM. No swelling or TTP. No TTP of the medial and lateral epicondyles Left Elbow: Full ROM. No swelling or TTP. No TTP of the medial and lateral epicondyles Shoulders Right shoulder: Full ROM. No swelling noted. No TTP of the AC joint, subacromial bursa or posterior shoulder Left shoulder: Full ROM. No swelling noted. No TTP of the AC joint, subacromial bursa or posterior shoulder Knees Right knee: Full ROM. No swelling noted. No TTP of the knee joint lie or pes anserine bursa Left knee: Full ROM. No swelling noted. No TTP of the knee joint lie or pes anserine bursa. Crepitations felt bilaterally Ankles Right ankle: Good ankle dorsiflexion and plantar flexion. No swelling. No TTP of the ankle joint Left ankle: Good ankle dorsiflexion and plantar flexion. No swelling. No TTP of the ankle joint Feet Right foot: Negative squeeze test Left foot: Negative squeeze test Tender points? No tenderness to palpation of the bilateral trapezius, supraspinatus, anterior costochondral junctions, bilateral suboccipital muscle insertions SKIN No rashes Right Left Neck 5 Pediatric Dental Hygienist strength 5 5 Wrist flexion 5 5 Wrist extension 5 5 Elbow extension 5 5 Elbow flexion 5 5 Shoulder abduction 5 5 Shoulder adduction 5 5 Hip flexion 5 5 Knee extension 5 5 Knee flexion 5 5 Ankle dorsiflexion 5 5 Ankle plantar flexion 5 5 Vital Signs: Last Vital Signs Pulse 85 12/09/24 14:28 BP 140/80 H 12/09/24 14:28 Pulse Ox 98 12/09/24 14:28 Oxygen Delivery Method Room Air 12/09/24 14:28 BMI result Body Mass Index 24.8 Results Reviewed Results Reviewed: Laboratory Tests 01/27/24 05/15/24 14:14 13:51 WBC 7.5 RBC 4.35 Hgb 13.2 Hct 41.3 Plt Count 279 ESR 18 24 H Sodium 137 Potassium 3.7 Chloride 105 Carbon Dioxide 27 BUN 13 Creatinine 0.77 AST 21 ALT 9 C-Reactive Protein 2.54 H 1.80 H 25-OH Vitamin D Total 71 SRP +ve Assessment & Plan Assessment & Plan (1) Seronegative rheumatoid arthritis: Comment: Onset in about 2017 with PMR like picture. In 2021 she developed more small joint synovitis in the hands. RF in 2018. -ve CCP In 2018 treatment trial HCQ and then sulfasalazine was aborted because of skin rashes. 01/2022: methotrexate started, effective Code(s): M06.00 - Rheumatoid arthritis without rheumatoid factor, unspecified site Category: Medical Plan: #Seronegative RA Patient is an 79-year-old female with seronegative rheumatoid arthritis here today for follow up. Currently off methotrexate on a background of recent diagnosis of organizing pneumonia. She received a prednisone taper with improvement and was advised to stop methotrexate by her nps. At this time I do not see any evidence of active synovitis on examination and so I think given that she has a lot of these neurological issues going on currently it would benefit her to be on less medications. We will reach out to her nps to discuss her lung findings to see if we do need to add additional immunosuppression. Plan - Monitor off DMARDs - RTC 6 months - Labs before visit: CBC, CMP, ESR, CRP (2) Osteoporosis: Comment: Bone density 06/09/07 T -4.2 spine, -2.2 hip, -2.4 fem neck, -3.5 spine 2009 DEXA 2018 L-spine T-score -4.2, left hip T-score -2.3 DEXA 08/2021 L-spine T-score -3.8, left hip T-score -2.3 Alendronate: 1503-9121; restarted 2017- DC 01/2023 DEXA 05/2023 L-spine T-score -3.7 total hip T-score-2 point all femoral neck T-score -2.6 Code(s): M81.0 - Age-related osteoporosis without current pathological fracture Category: Medical Qualifiers: Osteoporosis type: age-related Presence of current pathological fracture: without current pathological fracture Qualified Code(s): M81.0 - Age-related osteoporosis without current pathological fracture Plan: #Osteoporosis Patient currently on a drug holiday. Last bone density done in 2023. Her next is due in 2025 Continue vitamin-D supplementation (3) Organizing pneumonia: Code(s): J84.89 - Other specified interstitial pulmonary diseases Category: Medical Plan: #Kerry LEYVA Diagnosed with organizing pneumonia which can be related to her underlying rheumatoid arthritis. She does also have a positive SRP but no muscle signs or symptoms on examination. We will need to follow up with her nps to see if her repeat scans showed improvement. We will have a low threshold for immunosuppression given the SRP positive Plan I spent 35 minutes reviewing the record and labs, taking a history, examining the patient, discussing the treatment plan, ordering diagnostic work up and documenting in the medical record Orders: Orders Complete Blood Count Auto Diff Today M06.00 - Rheumatoid arthritis without rheumatoid factor, unspecified site Comprehensive Met. Panel Today M06.00 - Rheumatoid arthritis without rheumatoid factor, unspecified site C Reactive Protein Today M06.00 - Rheumatoid arthritis without rheumatoid factor, unspecified site Erythrocyte Sedimentation Rate Today M06.00 - Rheumatoid arthritis without rheumatoid factor, unspecified site Vitamin D 25-OH Total Today E55.9 - Vitamin D deficiency, unspecified XR DEXA axial skeleton 05/25/25 M81.0 - Age-related osteoporosis without current pathological fracture Comprehensive Met. Panel 6 Months E55.9 - Vitamin D deficiency, unspecified, Z79.899 - Other nursing home (current) drug therapy C Reactive Protein 6 Months E55.9 - Vitamin D deficiency, unspecified, Z79.899 - Other nursing home (current) drug therapy Vitamin D 25-OH Total 6 Months E55.9 - Vitamin D deficiency, unspecified Complete Blood Count Auto Diff 6 Months E55.9 - Vitamin D deficiency, unspecified, Z79.899 - Other intermodal owner operator truck driver (current) drug therapy Erythrocyte Sedimentation Rate 6 Months E55.9 - Vitamin D deficiency, unspecified, Z79.899 - Other intermodal owner operator truck driver (current) drug therapy Coding Level of Care Code Est Pt Level 4 (66962) Complex EM visit Add On G2211 Diagnoses Seronegative rheumatoid arthritis M06.00 Age-related osteoporosis without current pathological fracture M81.0 Osteoporosis type: age-related Presence of current pathological fracture: without current pathological fracture Organizing pneumonia J84.89
[2024-12-09 14:28] VITALS: BP 140/80; PULSE 85; O2SAT 98; BMI 24.8
--- OUTSIDE RECORDS SUMMARY | 2024-12-09 15:00 | XMS_ITS ---
Author Name [facility] Organization Unknown Results Test Name/Text Value Interpretation Date Range Source Ref Lab Test Results See Scanned Result Normal 06/16/2024 [facility] Citation Ref Lab Test The technical components of this case were performed at [address] [address] CLIA # [id number] Normal 05/01/2024 [facility] Clinical Information In cyto Normal 05/01/2024 [facility] Citation Ref Lab Test The technical components of this case were performed at [address] [address] CLIA # [id number] Normal 05/01/2024 [facility] Fungus Spec Cult SEE BELOW Normal 05/27/2024 [facility] History of Medication Use Medication Directions Dispensed Refills Start Date End Date Stat clopidogreL (PLAVIX) 75 mg tablet Take 1 tablet (75 mg total) by mouth 1 (one) time each day. 06/25/2024 active fluticasone furoate (Arnuity Ellipta) 100 mcg/actuation blister with device inhaler Inhale 1 puff by mouth 1 (one) time each day. 06/11/2024 active dexAMETHasone (DECADRON) injection 4 mg 4 mg, intravenous, Once as needed, nausea and vomitting, Starting on Sat04/29/24 at 1437, For 1 dose, Administer 2nd unless given in OR 04/29/2024 active ipratropium-albuteroL (DUONEB) 0.5-2.5 mg/3 mL nebulizer solution 3 mL 3 mL, nebulization, Once as needed, wheezing, Starting on Sat04/29/24 at 1437, For 1 dose 04/29/2024 active oxyCODONE (ROXICODONE) immediate release tablet 5 mg 5 mg, oral, Every 4 hours PRN, moderate pain, severe pain, for pain 4-6, Starting on Sat04/29/24 at 1437, For 2 doses 04/29/2024 active albuterol HFA (PROAIR HFA ; PROVENTIL HFA ; VENTOLIN HFA) 90 mcg/actuation inhaler Inhale 2 Puffs into the lungs every 4 hours as needed for Shortness of Breath for up to 180 days. 02/24/2021 active fluticasone propionate (FLONASE) 50 mcg/actuation nasal spray 1 [place] by Nasal route daily. Each nostril 02/24/2021 active cholecalciferol (VITAMIN D-3) 25 mcg (1,000 unit) tablet Take 2 Tabs by mouth daily. 01/22/2013 active desonide (DESOWEN) 0.05 % cream Apply topically 2 (two) times a day. On scalp per derm active loratadine (CLARITIN) 10 mg tablet Take 10 mg by mouth daily. active mometasone (ELOCON) 0.1 % cream Apply topically 1 (one) time each day. Per derm active pimecrolimus (ELIDEL) 1 % cream Apply topically 2 (two) times a day. Per derm- on face and ears only active Allergies Allergen Reaction Severity Comment Documented Date Source Status SHELLFISH DERIVED NAUSEA AND VOMITING 04/29/2024 [facility] active HYDROXYCHLOROQUINE SULFATE Other Reaction(s): Rash/Dermati tis 07/09/2017 [facility] active SULFA (SULFONAMIDE ANTIBIOTICS) Reaction to Topical preparation, Other Reaction(s): Hives/Urtica latesha 01/18/2009 [facility] active Problems Problem Status Onset Date Problem Type Date of Resolution Source HBP (high blood pressure) active 2009-01-18 ProblemAct [facility] Primary osteoarthritis of both hands active 2018-07-07 ProblemAct [facility] Hyperparathyroidism active 2012-11-21 ProblemAct [facility] Vitamin D deficiency active 2009-06-03 ProblemAct [facility] Iliac artery aneurysm, right active 2024-05-07 ProblemAct [facility] Asthma active 2009-08-19 ProblemAct [facility] 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-27 ProblemAct [facility] Rhinitis, chronic active 2019-04-21 ProblemAct [facility] Polymyalgia rheumatica active 2017-03-08 ProblemAct [facility] Hypercholesteremia active 2009-01-18 ProblemAct [facility] Pulmonary nodules/lesions, multiple active 2014-05-25 ProblemAct [facility] Osteoporosis active 2009-01-18 ProblemAct [facility] Immunizations Vaccine Date Source Lot Number Status Influenza trivalent, 0.5mL ( Fluad) 65yo and older 03/12/2024 [facility] [id number] completed Influenza Quadravalent, 0.5m l (Fluzone High-dose) 65yo and older 03/12/2023 [facility] [id number] comple gregory Influenza trivalent, 0.5mL ( Fluzone High-dose) 65yo and older 02/28/2022 [facility] [id number] comple gregory Influenza trivalent, 0.5mL ( Fluzone High-dose) 65yo and older 02/24/2021 [id number] comple gregory Td Tetanus diptheria (Tdvax) 7yo and older 02/24/2021 [facility] [id number] completed [employer] SARS-CoV-2 COVID-19, mRNA, LNP-S, preservative free 07/08/2020 [id number] [employer] SARS-CoV-2 COVID-19, mRNA, LNP-S, preservative free 06/17/2020 [facility] [id number] completed Influenza Quadravalent, 0.5m l (Fluad) 65yo and older 02/16/2020 [facility] completed Influenza, Unspecified 02/16/2020 [facility] co mpleted Influenza trivalent, 0.5mL ( Fluzone High-dose) 65yo and older 03/04/2019 [facility] comple gregory Influenza trivalent, with pr eservative (Fluzone; Afluria) 6mo and older 03/03/2019 [facility] completed Influenza trivalent, 0.5mL ( Fluzone High-dose) 65yo and older 01/31/2018 [facility] [id number] comple gregory PPD Test 09/10/2017 [facility] [id number] completed Influenza Quadravalent, MDCK , 0.5ml, with preservative (Flucelvax) 6mo and older 03/15/2017 [facility] [id number] completed Influenza trivalent, 0.5mL ( Fluzone High-dose) 65yo and older 02/29/2016 [facility] [id number] comple gregory Influenza trivalent, with pr eservative (Fluzone; Afluria) 6mo and older 03/09/2015 [facility] [id number] completed Pneumococcal conjugate 13 va lent (Prevnar 13, PCV13) 2mo and older 11/04/2014 [facility] [id number] complet ed Influenza trivalent, with pr eservative (Fluzone; Afluria) 6mo and older 03/19/2014 [facility] [id number] completed Influenza trivalent, with pr eservative (Fluzone; Afluria) 6mo and older 02/12/2013 [facility] [id number] completed Influenza trivalent, with pr eservative (Fluzone; Afluria) 6mo and older 01/23/2012 [facility] [id number] completed Influenza trivalent, with pr eservative (Fluzone; Afluria) 6mo and older 03/29/2011 [facility] [id number] completed Influenza trivalent, with pr eservative (Fluzone; Afluria) 6mo and older 02/17/2010 [facility] [id number] completed Pneumococcal polysaccharide 23 valent (Pneumovax 23) 2yo and older 01/18/2009 [facility] [id number] com pleted Td Tetanus diptheria (Tdvax) 7yo and older 01/18/2009 [facility] [id number] completed Pneumococcal polysaccharide 23 valent (Pneumovax 23) 2yo and older 03/26/2001 [facility] com pleted Encounters Encounter Type Encounter Reason Primary Diagnosis Location Date Ambulatory Pain, unspecified Pain, unspecified [facility] 04/29/2024 Ambulatory Solitary pulmonary nodule Solitary pulmonary nodule [facility] 04/29/2024 Care Team Organization Name Specialty Phone Email Start Date End Da te [facility] Jessica Zee MD Primary Care 05/04/2024 [facility] Jessica Zee MD Primary Care 04/29/2024
--- OUTSIDE RECORDS SUMMARY | 2024-12-09 15:00 | XMS_ITS | Encounter Summary ---
Author Organization [facility] Address [address] [place] [address] Care Team Providers Care Striping Machine Operator Name Role Phone Isidro Franz MD Primary Care Provider Unavailable Booker Angulo DO Primary Care Provider Unavaila ble Jessica Zee MD Primary Care Provider [phone] Encounter Details Date Type Department Care Team Description 01/30/2021 Newspaper Photojournalist Report Medical Records [address] [place] [id number] Reese Reddy Social History Tobacco Use Types Packs/Day Years Used Date Smoking Tobacco: Never Smokeless Tobacco: Never Alcohol Use Standard Drinks/Week Comments Yes 0 (1 standard drink = 0.6 oz pur e alcohol) occasional Sex Assigned at Date Recorded Not on file Job Start Date Occupation Industry Not on file Not on file Not on file documented as of this encounter Plan of Treatment Not on file documented as of this encounter Visit Diagnoses Not on filedocumented in this encounter Care Teams Striping Machine Operator Relationship Specialty Start Date End Date Isidro Franz MD PCP - General Internal Medicine 11/17/20 Booker Angulo DO PCP - General Internal Medicine 05/09/21 10/27/23 Jessica Zee MD [address] [place] [address] [id number] PCP - General Internal Medicine 10/28/23 [facility] Specialist Rheumatology 03/12/24 documented as of this encounter
== END 2024-12-09 15:10 | disposition home or self-care (01) ==
PROVIDERS: PCP Family Medicine; Visit Provider Student in an Organized Health Care Education/Training Program
DX: M06.00 Rheumatoid arthritis without rheumatoid factor, unspecified site (principal); M81.0 Age-related osteoporosis without current pathological fracture; J84.89 Other specified interstitial pulmonary diseases
CPT/HCPCS: 99214; G2211

== ENCOUNTER → 2024-12-09 14:18 | Outpatient (BNVA) | payer MEDICARE, SELFPAY | PROVIDERS: PCP Family Medicine; Visit Provider Student in an Organized Health Care Education/Training Program | DX: M81.0 Age-related osteoporosis without current pathological fracture (principal); M06.00 Rheumatoid arthritis without rheumatoid factor, unspecified site; J84.89 Other specified interstitial pulmonary diseases; E55.9 Vitamin D deficiency, unspecified; Z79.899 Other long term (current) drug therapy | CPT/HCPCS: 99212 ==